=== PATIENT | female | born 1955 | race Caucasian/White ===

== ENCOUNTER → 2023-05-31 14:28 | Outpatient (REF) | payer BC, SELFPAY | LOC: HWWDC 14:28 | PROVIDERS: ATTENDING PHYSICIAN Family Medicine | DX: Z12.31 Encounter for screening mammogram for malignant neoplasm of breast (principal) | CPT/HCPCS: 77063; 77067 ==

== ENCOUNTER 2023-07-15 12:45 | Emergency (ER) | payer BC, MEDICARE, SELFPAY ==
[2023-07-15 13:05] VITALS: BP 142/82
[2023-07-15 13:37] LABS: % Eosinophils 3.1 % (0-6); % Immature Granulocytes 0.4 % (0-0.5); % Lymphocytes 31.2 % (20.5-51.1); % Monocytes 6.4 % (1.7-9.3); % Neutrophils 57.9 % (42.2-75.2); Absolute Basophils 0.1 10^3/uL (0-0.2); Absolute Eosinophils 0.2 10^3/uL (0-0.7); Absolute Lymphocytes 2.2 10^3/uL (1.2-3.4); Absolute Monocytes 0.5 10^3/uL (0.1-0.6); Absolute Neutrophils 4.1 10^3/uL (1.4-6.5); Hematocrit 36.6 % (37.0-47.0); Hemoglobin 12.2 g/dL (12.0-16.0); Mean Corp Hgb Conc. 33.3 g/dL (33.0-37.0); Mean Corpuscular Volume 101.9 fL (81.0-99.0); Nucleated Red Blood Cells % 0 %; Platelet Count 309 10^3/uL (130-400); Red Blood Cell Count 3.59 10^6/uL (4.20-5.40); Red Cell Dist. Width 13.8 % (11.5-14.5); White Blood Cell Count 7.1 10^3/uL (4.8-10.8)
[2023-07-15 13:50] LABS: ALT (SGPT) 34 U/L (0-35); AST (SGOT) 51 U/L (14-36); Albumin 4.5 g/dl (3.5-5.0); Alkaline Phosphatase 116 U/L (38-126); Blood Urea Nitrogen 19 mg/dl (7-17); Calcium 9.1 mg/dl (8.4-10.2); Carbon Dioxide 22 mmol/L (22-30); Chloride 102 mmol/L (98-107); Glucose 106 mg/dl (70-99); Potassium 3.9 mmol/L (3.5-5.1); Sodium 138 mmol/L (135-145); Total Bilirubin 0.4 mg/dl (0.2-1.3); Total Protein 6.9 g/dl (6.3-8.2); eGFR 49.61
[2023-07-15 14:01] LABS: Troponin I < 0.012 ng/ml
--- NOTE | 2023-07-15 15:08 | ED.GENMED ---
History of Present Illness
General
Chief Complaint: Headache
Source: patient and spouse
Exam Limitations: none
Time Seen by Provider: 07/15/23 15:07
Nursing documentation reviewed up to this point in time: agreed with
Travel History
Have you had any contact with someone who has COVID-19?: No
Do you have any symptoms of coronavirus? Fever > 100 degrees, chills, cough, shortness of breath, sore throat, loss of taste or smell, muscle aches, or headache?: No
History of Present Illness
History of Present Illness:
Patient is a 67-year-old female with past medical history of aneurysm with repair 18 years ago, migraine headaches, hyperlipidemia hypertension who presents to the ER for evaluation of headache. She has had intermittent headaches /migraines which
seem to be worse around change of weather since she had her aneurysm repair. For this she is treated with oxycodone as needed. She is followed by neurology outside of [facility]. Over the past week she has had increased episodes of
migraines however since 2 AM patient has had this right-sided migraine headache which is not relieved with oxycodone. She reports this is worse than her normal headaches but same type of headache. She denies any associated vision loss nausea
vomiting fever chills.
She denies any trauma. She denies any neck pain numbness tingling confusion difficulty with speech.
Past History
Past History
ED Past Medical History: Cancer (breast treated with lumpectomy, chemotherapy, radiation therapy), HTN, Hypercholesterolemia, Psychiatric (major depression), Other (pneumonia, hepatitis A), Other (Cerebral aneurysm, peripheral vascular disease) and
Other (colonic polyps); Negative Renal failure (chronic kidney disease stage III, history of acute kidney insufficiency) or Seizures (psychogenic nonepileptic seizures meaning pseudoseizures)
ED Past Surgical History: Cholecystectomy, Gynecological (hysterectomy, section), Orthopedic (legs fracture repairs, right hip replacement 2006, shoulder surgery 1977) and Other (Aneurysm with clips)
Social History
Tobacco: Former smoker
Alcohol: Chronic alcoholic
Drug: None
Personal:
Living: with family
Employment: Employed
Family History
Family History: Hypertension and Other (parent with alcoholism)
Review of Systems
Review of Systems
Allergies reviewed?: Yes
All Other Systems: ROS reviewed and negative except as documented in HPI and ROS
Constitutional: Reports no symptoms; Denies fever, fatigue or chills
EENT: Reports no symptoms
Respiratory: Reports no symptoms
Cardiac: Reports no symptoms
ABD/GI: Reports no symptoms; Denies nausea or vomiting
Musculoskeletal: Reports no symptoms; Denies neck pain
Skin: Reports no symptoms; Denies rash
Neurological: Reports headache
Hematologic/Lymphatic: Reports no symptoms
Psychiatric: Reports no symptoms
Phy Exam
General Physical Exam
General Presentation: no apparent distress
General age: appears stated age
General Skin: warm and dry
General Habitus: normal
General Mental: alert
General Hydration: appears well hydrated
Eye Exam
Eye Exam: PERRL and EOMI
Eye Exam General: PERRL: bilateral and EOM intact: bilateral
Pupil Exam: Bilateral: round and reactive
Neurological Exam
Neurological Exam: alert, oriented x3, no motor deficits and no sensory deficits
[place] Coma Scale
Eye Opening: Spontaneous
Verbal Response: Oriented
Motor Response: Obeys Commands
GCS Total Score: 15
Cerebellar
Cerebellar Function: normal finger to nose
Musculoskeletal Exam
Musculoskeletal Exam: full ROM and other (non tender over right temporal artery no rash )
Skin Exam
Skin Exam: normal color and warm/dry
Psychiatric Exam
Psychiatric Exam: normal mood/affect
Course
Orders/Labs/Results
Orders:
Orders
07/15/23 13:09
Electrocardiogram (*1) Urgent
Reason for Study: Other
Other Reason for Exam: chest tightness
07/15/23 13:10
EKG- Treatment ONCE
07/15/23 13:24
Complete Blood Count/With Diff Urgent
Comprehensive Metabolic Panel Urgent
Troponin I Urgent
07/15/23 15:19
CT Head W/o Iv Contrast Urgent
Comment:
Reason For Exam: right sided headache
07/15/23 15:20
Diphenhydramine [Benadryl] 25 mg IV NOW STA
Metoclopramide [Reglan] 10 mg IV NOW STA
07/15/23 15:21
0.9% Sodium Chloride 1000 ml [Nss] 1,000 ml IV BOLUS
Abnormal Lab Results
07/15/23
13:24
RBC 3.59 L 10^6/uL
(4.20-5.40)
Hct 36.6 L %
(37.0-47.0)
MCV 101.9 H fL
(81.0-99.0)
MCH 34.0 H pg
(27.0-31.0)
BUN 19 H mg/dl
(7-17)
Creatinine 1.2 H mg/dL
(0.6-1.0)
Glucose 106 H mg/dl
(70-99)
AST 51 H U/L
(14-36)
07/15/23 13:24
07/15/23 13:24
Vital Signs
Initial and Last Documented VS:
Initial Vital Signs
Temp Pulse Resp BP Pulse Ox
98.7 F 90 18 142/82 98
07/15/23 13:05 07/15/23 13:05 07/15/23 13:05 07/15/23 13:05 07/15/23 13:05
Last Documented Vital Signs
Temp Pulse Resp BP Pulse Ox
98.7 F 81 12 123/78 99
07/15/23 13:05 07/15/23 16:19 07/15/23 16:19 07/15/23 16:19 07/15/23 16:19
MDM/Problems Addressed
Differential Diagnosis Includes:
not limited to: migraine , intracranial hemorrhage
MDM/Problems Addressed:
Patient is a 67-year-old female with history of migraines status post aneurysm repair approximately 10 years ago. She does see Dr. Purvis of neurology and takes oxycodone as needed. Patient reports this headache was similar nature to her
previous migraines but worse. She has had increasing head of her recent weather change. Patient denies any recent fever or chills. She denies any trauma denies neck pain no rash she is nontender over the right temporal artery. CAT scan
unremarkable. Patient was given Reglan fluids Benadryl feeling much better feels well to go home. Will DC with outpatient neurology.
*Radiology
Radiology exam reviewed: radiology read reviewed
*Pulse Oximetry
Patient hypoxic: no
*Critical Care Note
Total Time (30-74mins, 75-104mins- exclusive of procedures): Not Applicable
ED Attending Note
-
Portions of this chart may have been created with voice recognition software.� Occasional wrong word or��sound alike� substitutions may have occurred due to the inherent limitations of voice recognition software.
Discharge Plan
Departure
Patient Disposition: Home (Routine Discharge)
Date of Disposition: 07/15/23
Time of Disposition: 18:20
Patient with high blood pressure during this ER visit?: Yes
Condition: Fair
Covid-19: Not Applicable
Discharge Problem:
Headache
Instructions: Headache, Adult (DC), BLOOD PRESSURE
Prescriptions:
No Action
topiramate 25 MG tablet
50 mg PO BID
simvastatin 20 MG tablet
40 mg PO HS
duloxetine 60 MG capsule,delayed release(DR/EC)
60 mg PO BID
multivitamin with folic acid [Tab-A-Sanchez] 1 TABLET tablet
1 tab PO DAILY
lamotrigine [Lamictal] 200 mg Tablet
400 mg PO HS
levothyroxine 25 MCG tablet
50 mcg PO DAILY
ferrous sulfate [Feosol] 325 mg (65 mg iron) Tablet
325 mg PO DAILY
potassium chloride
1 tab PO DAILY
mupirocin 2 % ointment
1 applic intranasal BID Qty: 1 0RF
Patient Comments:
Patient applied 04/15/23 @ 4;30. Patient start this medication 04/12/23 in the evening.
aspirin 325 mg Tablet
325 mg PO DAILY Qty: 30 0RF
Rx Instructions:
Take daily x4 weeks for blood clot prevention; then resume Aspirin 81 mg daily.
docusate sodium 100 mg Capsule
100 mg PO BID Qty: 30 0RF
lidocaine 4 % Adhesive Patch,Medicated
2 - 3 patch topical DAILY Qty: 30 0RF
Rx Instructions:
Over the counter. 12 hours on, 12 hours off.
Apply to sides of L knee/thigh
famotidine 20 mg Tablet
20 mg PO HS Qty: 30 0RF
Rx Instructions:
Take nightly while on post-operative pain meds to prevent GI upset.
oxycodone 5 mg Tablet
5 - 10 mg PO Q4H PRN (Reason: moderate-severe pain) Qty: 40 0RF
Rx Instructions:
1 tab for moderate pain, 2 if severe.
Dx total joint
sennosides [Senna Lax] 8.6 mg Tablet
17.2 mg PO BID Qty: 30 0RF
acetaminophen [Tylenol Extra Strength] 500 mg tablet
1,000 mg PO Q6H Qty: 60 0RF
Rx Instructions:
DO NOT exceed >4000 mg daily.
ondansetron HCl 4 mg tablet
4 mg PO Q6H PRN (Reason: nausea and vomiting) Qty: 30 0RF
diazepam [Valium] 2 mg tablet
2 mg PO BID PRN (Reason: muscle spasm/anxiety) Qty: 10 0RF
Rx Instructions:
Caution with Oxycodone - can cause drowsiness.
Take only as directed.
prednisone 10 mg tablet
40 mg PO TAPER Qty: 20 0RF
Rx Instructions:
4 TABS X 2 DAYS, 3 TABS X 2 DAYS, 2 TABS X 2 DAYS, 1 TAB X 2 DAYS, THEN STOP
clonidine HCl 0.1 MG tablet
0.1 mg PO BID Qty: 60 0RF
Rx Instructions:
HOLD IF systolic blood pressure <130 while on Oxycodone.
candesartan 16 MG tablet
16 mg PO DAILY Qty: 0 0RF
Rx Instructions:
HOLD IF systolic blood pressure <130 while on Oxycodone.
Referrals:
Joselin Proctor, DO [Family Provider] -
Activity Restrictions/Additional Instructions:
You may take your medications as previously prescribed for headaches.
Follow-up with your neurologist in the next several days and return if any worsening of symptoms
Interventions
Interventions:
*Risk Screen - Suicide Last Done: 07/15/23 13:05
*General Assessment Last Done: 07/15/23 13:05
*Neglect/Abuse Screening Last Done: 07/15/23 13:05
ED- Neurological Assessment Last Done: 07/15/23 16:19
Discharge Date and Time
Print Language: MACEDONIAN
[2023-07-15] MEDS: NSS 1000 IV (15:26)
[2023-07-15] MEDS: BENADRYL 25 MG IV (15:27)
[2023-07-15] MEDS: REGLAN 10 MG IV (15:27)
--- NOTE | 2023-07-15 15:30 | EDRN ---
Pt screaming and yelling in hallway, unable to be consoled by . Pt yelling 'just cut my head off' over and over again. attempting to redirect pt to stop yelling since other patients were starting to observe this behavior.
informed pt 'not many people live without a head' in an attempt to joke with pt and maybe bring her around from repetitive yelling, pt continued to ask for staff to cut her head off... this RN did follow up suicide assessment and RADAR screening, pt
states 'I don't really want you to cut my head off you idiots!' Airway patent, pt in no acute distress. Will continue to monitor.
[2023-07-15 16:19] VITALS: BP 123/78
--- NOTE | 2023-07-15 16:42 | EDRN ---
Pt sleeping in stretcher, at bedside.
== END 2023-07-15 18:45 | disposition home or self-care (01) ==
LOC: EMR 12:45
PROVIDERS: EMERGENCY PHYSICIAN Student in an Organized Health Care Education/Training Program; FAMILY PHYSICIAN Family Medicine
DX: R51.9 Headache, unspecified (principal); I10 Essential (primary) hypertension; Z87.891 Personal history of nicotine dependence
CPT/HCPCS: 99285; 96374; 96375; 96361; 70450; 80053; 84484; 85025; 93005

== ENCOUNTER 2023-07-17 06:21 | Emergency (ER) | payer BC, MEDICARE, SELFPAY ==
[2023-07-17] VITALS (10 sets, daily range): BP systolic 123–172; BP diastolic 68–96
--- NOTE | 2023-07-17 07:16 | ED.GENMED ---
History of Present Illness
General
Chief Complaint: Headache
Source: patient and spouse
Time Seen by Provider: 07/17/23 07:05
Travel History
Have you had any contact with someone who has COVID-19?: No
Do you have any symptoms of coronavirus? Fever > 100 degrees, chills, cough, shortness of breath, sore throat, loss of taste or smell, muscle aches, or headache?: No
History of Present Illness
History of Present Illness:
This patient is a 67-year-old female presents emergency department complaints of a 'migraine'. Patient has a longstanding history of migraines ever since she had a aneurysm clipPED in 2005. She notes this is usually associated with changes in the
weather such as rain which we are experiencing at this time. Her neurologist prescribed her oxycodone to take as needed for the symptoms which usually helps her. A typical migraine for her start near the scar area of the right frontal area and
radiates across her forehead and to the top of her head. She notes that sometimes her ears will be ringing, and she notes photophobia as well. She is having the same type of headache now, but is concerned because it is not relieved with oxycodone
as it typically is. It is gradual in onset and not worst of life. She was seen in the emergency department on with similar presentation and felt better with medications here. She was not fully pain-free upon discharge and states that
since then she has been having 'waves' of recurrent pain lasting 20 to 40 minutes at a time and then reducing but not fully resolving. She denies associated visual changes/diplopia, imbalance dizziness or vertigo, nausea, vomiting, chest pain,
shortness of breath, abdominal pain, numbness, focal weakness, clumsiness, or other complaints. Patient denies recent trauma.
Past History
Past History
ED Past Medical History: Cancer (breast treated with lumpectomy, chemotherapy, radiation therapy), HTN, Hypercholesterolemia, Seizures (psychogenic nonepileptic seizures meaning pseudoseizures), Psychiatric (major depression), Other (pneumonia,
hepatitis A), Other (Cerebral aneurysm, peripheral vascular disease) and Other (colonic polyps)
ED Past Surgical History: Cholecystectomy, Gynecological (hysterectomy, section), Orthopedic (legs fracture repairs, right hip replacement 2006, shoulder surgery 1977) and Other (Aneurysm with clips)
Social History
Tobacco: Former smoker
Alcohol: Chronic alcoholic
Drug: None
Personal:
Living: with family
Employment: Employed
Family History
Family History: Hypertension and Other (parent with alcoholism)
Phy Exam
Physical Exam
Physical Exam:
GENERAL: Alert , in no apparent distress
EYE: pupils equal and reactive, EOMI, no nystagmus, mild objective photophobia noted
NECK: Supple, no significant adenopathy.
ENT: o/p clr, mmm.
CARDIAC: Regular rate and rhythm .
LUNGS: Clear breath sounds bilaterally, no acute respiratory distress, no wheezes/rales/rhonchi
ABDOMEN: Soft, without focal tenderness, no r/g, no cvat
NEUROLOGICAL: Alert and oriented, no focal neuro deficits, speech clear, cranial nerves II through XII intact, was all extremities equally
SKIN: Warm and dry, skin intact.
MUSCULOSKELETAL: No edema, well perfused.
PSYCH: Normal and appropriate interaction.
Course
Orders/Labs/Results
Orders:
Orders
07/17/23 07:15
Diphenhydramine [Benadryl] 25 mg IV NOW STA
Metoclopramide [Reglan] 10 mg IV NOW STA
07/17/23 09:41
Dexamethasone Sod Phosphate [Decadron] 20 mg .ROUTE .STK-MED ONE
07/17/23 09:42
Dexamethasone Sod Phosphate [Decadron] 10 mg IV NOW STA
Vital Signs
Initial and Last Documented VS:
Initial Vital Signs
Temp Pulse Resp BP Pulse Ox
98.5 F 105 24 147/87 97
07/17/23 06:26 07/17/23 06:26 07/17/23 06:26 07/17/23 06:26 07/17/23 06:26
Last Documented Vital Signs
Temp Pulse Resp BP Pulse Ox
98.2 F 95 16 154/88 96
07/17/23 14:15 07/17/23 14:15 07/17/23 14:15 07/17/23 14:15 07/17/23 14:15
*Critical Care Note
Total Time (30-74mins, 75-104mins- exclusive of procedures): Not Applicable
Update Note
Update Note:
Patient presents to the Emergency Department with ___headache
Number and Complexity of Problems Addressed at the Encounter
� Chronic conditions affecting care:
� Acute Exacerbation and/or Progression of Chronic Illness:
� Differential Diagnosis includes: But not limited to tension headache, recurrent migraine, cluster headache, bleed, etc.
Amount and/or Complexity of Data to be Reviewed and Analyzed
� I performed an independent evaluation of and my interpretation is:
EKG:
CT:
Xrays:
Laboratory Studies:
Other:
� Review of other/old records reveals:
� Clinical information was obtained by an independent historian:
� Prescriptions/Medications Considered but not given:
� Further testing considered but not performed:
Risk of Complications and/or Morbidity or Mortality of Patient Management
� Social determinants of health affecting care:
� Discussion with other providers (PCP, Hospitalists, Consultants, etc):
� Escalation of care including admission/observation vs risk of discharge considered: 1:46 PM multiple reassessments here, patient has slept for much of it, she then awoke complaining of another 'event' of pain, patient dosed
with steroids, is pain-free, stable, nontoxic, without any findings or complaints. Highly doubt that this is related to something more ominous given clinical course here, unremarkable CT just a few days ago, etc. etc. Patient and eager to
go home. They are aware of importance of follow-up and reasons to return to the ER.
ED Attending Note
-
Portions of this chart may have been created with voice recognition software.� Occasional wrong word or��sound alike� substitutions may have occurred due to the inherent limitations of voice recognition software.
Discharge Plan
Departure
Patient Disposition: Home (Routine Discharge)
Date of Disposition: 07/17/23
Time of Disposition: 13:44
Patient with high blood pressure during this ER visit?: Yes
Condition: Good
Discharge Problem:
Headache
Instructions: Headache, Adult (DC), BLOOD PRESSURE
Prescriptions:
New
prednisone 20 mg tablet
40 mg PO DAILY 3 Days Qty: 6 0RF
No Action
topiramate 25 MG tablet
50 mg PO BID
simvastatin 20 MG tablet
40 mg PO HS
duloxetine 60 MG capsule,delayed release(DR/EC)
60 mg PO BID
multivitamin with folic acid [Tab-A-Sanchez] 1 TABLET tablet
1 tab PO DAILY
lamotrigine [Lamictal] 200 mg Tablet
400 mg PO HS
levothyroxine 25 MCG tablet
50 mcg PO DAILY
ferrous sulfate [Feosol] 325 mg (65 mg iron) Tablet
325 mg PO DAILY
potassium chloride
1 tab PO DAILY
famotidine 20 mg Tablet
20 mg PO HS Qty: 30 0RF
Rx Instructions:
Take nightly while on post-operative pain meds to prevent GI upset.
oxycodone 5 mg Tablet
5 - 10 mg PO Q4H PRN (Reason: moderate-severe pain) Qty: 40 0RF
Rx Instructions:
1 tab for moderate pain, 2 if severe.
Dx total joint
clonidine HCl 0.1 MG tablet
0.1 mg PO BID Qty: 60 0RF
Rx Instructions:
HOLD IF systolic blood pressure <130 while on Oxycodone.
candesartan 16 MG tablet
16 mg PO DAILY Qty: 0 0RF
Rx Instructions:
HOLD IF systolic blood pressure <130 while on Oxycodone.
aspirin [Aspir-Low] 81 mg Tablet,Delayed Release (Dr/Ec)
81 mg PO DAILY
Referrals:
Joselin Proctor DO [Family Provider] -
Activity Restrictions/Additional Instructions:
PLEASE CONTACT YOUR NEUROLOGIST ON WEDNESDAY FOR CLOSE FOLLOW-UP. IF YOU DEVELOP INCREASING, NEW, PERSISTENT PAIN, FEVER, VOMITING, NUMBNESS, WEAKNESS, DIZZINESS, CHANGE IN VISION, CHANGE IN SPEECH, OR OTHER WORRISOME SIGNS, PLEASE RETURN TO THE ER
IMMEDIATELY.
Interventions
Interventions:
*Risk Screen - Suicide Last Done: 07/17/23 06:26
*General Assessment Last Done: 07/17/23 06:26
*Neglect/Abuse Screening Last Done: 07/17/23 06:26
ED- Fall Risk Assessment Last Done: 07/17/23 06:26
*ED COVID-19 Vaccine History Last Done: 07/17/23 06:26
*Nursing Disposition Last Done: 07/17/23 14:15
ED- Neurological Assessment Last Done: 07/17/23 06:45
Discharge Date and Time
Discharge Date/Time: 07/17/23 14:15
Print Language: [id number]
[2023-07-17] MEDS: REGLAN 10 MG IV (07:24)
[2023-07-17] MEDS: BENADRYL 25 MG IV (07:24)
[2023-07-17] MEDS: DECADRON 10 MG IV (09:43)
== END 2023-07-17 14:15 | disposition home or self-care (01) ==
LOC: EMR 06:21
PROVIDERS: EMERGENCY PHYSICIAN Emergency Medicine; FAMILY PHYSICIAN Family Medicine
DX: R51.9 Headache, unspecified (principal); I10 Essential (primary) hypertension; E78.00 Pure hypercholesterolemia, unspecified; R56.9 Unspecified convulsions; I73.9 Peripheral vascular disease, unspecified; F32.9 Major depressive disorder, single episode, unspecified; F10.20 Alcohol dependence, uncomplicated; Z90.49 Acquired absence of other specified parts of digestive tract; Z96.641 Presence of right artificial hip joint; Z87.891 Personal history of nicotine dependence; Z88.5 Allergy status to narcotic agent; Z88.0 Allergy status to penicillin; Z88.8 Allergy status to other drugs, medicaments and biological substances; Z88.3 Allergy status to other anti-infective agents; Z91.030 Bee allergy status
CPT/HCPCS: 99284; 96374; 96375 ×2

== ENCOUNTER → 2023-08-03 14:04 | Outpatient (REF) | payer BC, MEDICARE, SELFPAY | LOC: MRI 14:04 | PROVIDERS: ATTENDING PHYSICIAN Neurological Surgery; FAMILY PHYSICIAN Family Medicine | DX: I67.1 Cerebral aneurysm, nonruptured (principal); G44.53 Primary thunderclap headache; G40.909 Epilepsy, unspecified, not intractable, without status epilepticus | CPT/HCPCS: 70553; A9575 ==

== ENCOUNTER → 2023-10-15 12:36 | Outpatient (REF) | payer BC, MEDICARE, SELFPAY | LOC: HWRAD 12:36 | PROVIDERS: ATTENDING PHYSICIAN Family Medicine | DX: R68.89 Other general symptoms and signs (principal) | CPT/HCPCS: 74176 ==

== ENCOUNTER 2024-04-20 21:47 | Inpatient (IN) | payer BC, MEDICARE, SELFPAY ==
[2024-04-20 18:21] VITALS: BP 155/89
--- NOTE | 2024-04-20 18:22 | ED.CVA ---
History of Present Illness
General
Chief Complaint: CVA/TIA Symptoms
Time Seen by Provider: 04/20/24 18:21
Onset of Stroke Symptoms
Onset of symptoms known: Yes
Date of onset of symptoms: 04/20/24
History of Present Illness
History of Present Illness:
TIME OF INITIAL ENCOUNTER: 6:20 PM
HPI: I spoke to EMS for history as the patient is an extremely poor historian currently. EMS states that the patient started taking nap at 4:30 PM and was at her baseline usual self at that time. She woke up around 5:30 PM with severe headache.
Per EMS they noted severe language deficit with repetitive speech and garbled speech. They noted no extremity weakness. There was some report of alcohol use earlier as well.
EXAM:
GENERAL: The patient is overall ill in appearance and appears photophobic
HEENT: Moist oral mucosa
CARDIOVASCULAR: No murmurs, normal heart rate, regular rhythm, No chest wall tenderness
PULMONARY: No respiratory distress, breath sounds are clear and equal
ABDOMEN: Soft with no peritoneal signs, no tenderness
NEUROLOGIC: Fair strength all extremities equally, due to patient compliance, coordination is not testable, language and speech is abnormal with garbled speech
PSYCHIATRIC: Impaired mental status with limited insight and judgment
EXTREMITIES: Nontender, no edema, moves all extremities equally
SKIN: No rash, no lesions
NUMBER AND COMPLEXITY OF PROBLEMS ADDRESSED AT THE ENCOUNTER
� Chronic conditions affecting care: Reviewed old records indicate the patient was diagnosed with a brain aneurysm in 2004, is a smoker, high blood pressure, hyperlipidemia, breast cancer
� Acute Exacerbation and/or Progression of Chronic Illness: This is an acute
� Differential Diagnosis includes: Hemorrhagic stroke, ischemic stroke, hypoglycemia, alcohol intoxication
AMOUNT AND/OR COMPLEXITY OF DATA TO BE REVIEWED AND ANALYZED
� I performed an independent evaluation of and my interpretation is:
EKG: Sinus 98, nonspecific ST abnormality
CT: Noncontrast brain CT negative, CTA head and neck shows 75% stenosis right ICA patient
X-rays:
Laboratory Studies: CBC is unremarkable but MCV is 101 alcohol is 196, LFTs abnormal, bicarb 20
Other:
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
� Clinical information was obtained by an independent historian: I spoke to the at bedside
� Prescriptions/Medications Considered but not given:
� Further testing considered but not performed:
RISK OF COMPLICATIONS AND/OR MORBIDITY OR MORTALITY OF PATIENT MANAGEMENT
� Social determinants of health affecting care: Lives at home
� Discussion with other providers: Discussed case with Dr. Richardson below
� Escalation of care including admission/observation vs risk of discharge considered:
ANY OTHER UPDATES:
6:40 PM: I spoke to the at bedside after patient came back from CT. The patient has been having myalgias and arthralgias since this past August. She was seen by storage center manager who felt that her symptoms were not rheumatologic in nature and
referred her back to her neurologist. She is supposed to have an EMG as an outpatient with her neurologist as well. Her speech is intermittently improving. She was seen by Dr. Ferrer in the Emergency Department who suspect this is not neurologic
in nature but recommended the patient stay in the hospital for further evaluation and MRI tomorrow as she does have risk factors. Alcohol is elevated however I do not suspect that this is explaining all of her symptoms. feels strongly that
the patient should not be discharged. Although patient currently does not want to stay, I am concerned about her mental status and ability to make a decision about leaving appropriately at this time.
Past History
Past History
ED Past Medical History: Cancer (breast treated with lumpectomy, chemotherapy, radiation therapy), HTN, Hypercholesterolemia, Seizures (psychogenic nonepileptic seizures meaning pseudoseizures), Psychiatric (major depression), Other (pneumonia,
hepatitis A), Other (Cerebral aneurysm, peripheral vascular disease) and Other (colonic polyps)
ED Past Surgical History: Cholecystectomy, Gynecological (hysterectomy, section), Orthopedic (legs fracture repairs, right hip replacement 2006, shoulder surgery 1977) and Other (Aneurysm with clips)
Social History
Tobacco: Former smoker
Alcohol: Chronic alcoholic
Drug: None
Personal:
Living: with family
Employment: Employed
Family History
Family History: Hypertension and Other (parent with alcoholism)
Phy Exam
Physical Exam
Physical Exam:
See HPI
Course
Orders/Labs/Results
Orders:
Orders
04/20/24 18:21
CT HEAD STROKE ALERT W/o Cont Urgent
Comment:
Reason For Exam: severe DUMONT garbled speech acute
CT HEAD/NECK ANG STROKE ALERT Stat
Comment:
Reason For Exam: severe DUMONT garbled speech acute
04/20/24 18:25
Bedside Glucose- Treatment ONCE
04/20/24 18:26
Electrocardiogram (*1) Urgent
Reason for Study: TIA/Stroke
EKG- Treatment ONCE
04/20/24 18:31
Acetaminophen Urgent
Alcohol Urgent
Complete Blood Count/With Diff Urgent
Comprehensive Metabolic Panel Urgent
PTT Urgent
Prothrombin Time Urgent
Salicylate Urgent
TSH Reflex To Free T4 Urgent
Vitamin B12 Urgent
Comment: ADD ON
04/20/24 19:36
Add On- LAB Urgent
Tests Added?: salicylate, acetaminophen level, urine drug screen
04/20/24 19:38
Add On- LAB Urgent
Tests Added?: vitamin B12 level
04/20/24 19:44
Add On- LAB Urgent
Tests Added?: TSh with free t4 reflex
Abnormal Lab Results
04/20/24 04/20/24
18:31 18:44
RBC 3.98 L 10^6/uL
(4.20-5.40)
MCV 101.3 H fL
(81.0-99.0)
MCH 33.4 H pg
(27.0-31.0)
Abs Immat Gran (auto) 0.1 H 10^3/uL
(0-0.05)
Absolute Neuts (auto) 6.8 H 10^3/uL
(1.4-6.5)
Immature Gran % 1.5 H %
(0-0.5)
Neutrophils % 81.7 H %
(42.2-75.2)
Lymphocytes % 14.5 L %
(20.5-51.1)
Monocytes % 1.6 L %
(1.7-9.3)
Carbon Dioxide 20 L mmol/L
(22-30)
BUN 20 H mg/dl
(7-17)
Glucose 149 H mg/dl
(70-99)
AST 128 H U/L
(14-36)
ALT 121 H U/L
(0-35)
Alkaline Phosphatase 186 H U/L
(38-126)
POC Glucose 157 H mg/dl
(70-99)
04/20/24 18:31
04/20/24 18:31
Vital Signs
Initial and Last Documented VS:
Initial Vital Signs
Pulse Resp BP Pulse Ox
99 18 155/89 95
04/20/24 18:21 04/20/24 18:21 04/20/24 18:21 04/20/24 18:21
Last Documented Vital Signs
Pulse Resp BP Pulse Ox
99 18 155/89 95
04/20/24 18:21 04/20/24 18:21 04/20/24 18:21 04/20/24 18:21
*Critical Care Note
Total Time (30-74mins, 75-104mins- exclusive of procedures): Not Applicable
ED Attending Note
-
Portions of this chart may have been created with voice recognition software.� Occasional wrong word or��sound alike� substitutions may have occurred due to the inherent limitations of voice recognition software.
Discharge Plan
Departure
Patient Disposition: Admit
Date of Disposition: 04/20/24
Time of Disposition: 19:08
Presentation/result/management discussed w/ accepting MD/DO: Hospitalist
Discharge Problem:
Acute alteration in mental status
Prescriptions:
No Action
topiramate 25 MG tablet
50 mg PO BID
simvastatin 20 MG tablet
40 mg PO HS
duloxetine 60 MG capsule,delayed release(DR/EC)
60 mg PO BID
multivitamin with folic acid [Tab-A-Sanchez] 1 TABLET tablet
1 tab PO DAILY
lamotrigine [Lamictal] 200 mg Tablet
400 mg PO HS
levothyroxine 25 MCG tablet
50 mcg PO DAILY
ferrous sulfate [Feosol] 325 mg (65 mg iron) Tablet
325 mg PO DAILY
potassium chloride
1 tab PO DAILY
famotidine 20 mg Tablet
20 mg PO HS Qty: 30 0RF
Rx Instructions:
Take nightly while on post-operative pain meds to prevent GI upset.
oxycodone 5 mg Tablet
5 - 10 mg PO Q4H PRN (Reason: moderate-severe pain) Qty: 40 0RF
Rx Instructions:
1 tab for moderate pain, 2 if severe.
Dx total joint
clonidine HCl 0.1 MG tablet
0.1 mg PO BID Qty: 60 0RF
Rx Instructions:
HOLD IF systolic blood pressure <130 while on Oxycodone.
candesartan 16 MG tablet
16 mg PO DAILY Qty: 0 0RF
Rx Instructions:
HOLD IF systolic blood pressure <130 while on Oxycodone.
aspirin [Aspir-Low] 81 mg Tablet,Delayed Release (Dr/Ec)
81 mg PO DAILY
prednisone 20 mg tablet
40 mg PO DAILY 3 Days Qty: 6 0RF
Referrals:
Joselin Proctor, DO [Family Provider] -
Interventions
Interventions:
*Risk Screen - Suicide Last Done: 04/20/24 18:47
*General Assessment Last Done: 04/20/24 18:47
*Neglect/Abuse Screening Last Done: 04/20/24 18:47
ED- Pulmonary Assessment Last Done: 04/20/24 18:45
ED- Neurological Assessment Last Done: 04/20/24 19:25
ED- Cardiac Assessment Last Done: 04/20/24 18:45
ED Swallowing Screen Last Done: 04/20/24 19:32
Discharge Date and Time
Print Language: GREEK
[2024-04-20 18:38] LABS: % Basophils 0.5 % (0-2); % Eosinophils 0.2 % (0-6); % Immature Granulocytes 1.5 % (0-0.5); % Lymphocytes 14.5 % (20.5-51.1); % Monocytes 1.6 % (1.7-9.3); % Neutrophils 81.7 % (42.2-75.2); Absolute Immature Granulocytes 0.1 10^3/uL (0-0.05); Absolute Lymphocytes 1.2 10^3/uL (1.2-3.4); Absolute Monocytes 0.1 10^3/uL (0.1-0.6); Absolute Neutrophils 6.8 10^3/uL (1.4-6.5); Hematocrit 40.3 % (37.0-47.0); Hemoglobin 13.3 g/dL (12.0-16.0); Mean Corpuscular Hgb 33.4 pg (27.0-31.0); Mean Corpuscular Volume 101.3 fL (81.0-99.0); Mean Platelet Volume 9.3 fL (7.4-10.4); Nucleated Red Blood Cells % 0 %; Platelet Count 255 10^3/uL (130-400); Red Blood Cell Count 3.98 10^6/uL (4.20-5.40); Red Cell Dist. Width 12.8 % (11.5-14.5); White Blood Cell Count 8.3 10^3/uL (4.8-10.8)
--- NOTE | 2024-04-20 18:41 | CON.NEURO ---
Consultation
Order
Date of Consultation: 04/20/24
Requesting Provider: Chago Padilla,
Reason for Consult: stroke alert
Stroke alert called in: 18:14
Neurology Consultation Note.
HPI: This is a 68-year-old woman who presented to [facility] on 04/20/2024 with change in speech. According to patient's spouse Ms. Porras woke up around 5:30 today, screaming and clutching her head. Her speech was noted to be 'really
off.'
No reports of visual, motor or or new sensory deficits. Last time seen in usual state of health�around 4:30 PM patient does have chronic arthralgias. The patient is unable to provide the history.
The patient recently completed a course of prednisone (20 mg for 3 days, followed by 15 mg) with no reported improvement of her chronic arthralgias/myalgias.
ER VS: 155/89, 99, afebrile, 95 on room air
EKG: NSR, QTc Int : 474 ms
PDMP:Oxycodone-Acetaminophen 5-325 60 tabs filled in on 03/09/2024, 04/11/2024
Labs: Glucose�149, AST�128, ALT�121, normal WBCs, MCV�101.3, EtOH�196 mg/dl
CT head wo contrast-no acute abnormalities
CTA head/neck�75% of the right ICA.
Brain MRI wo nilda(07/03/23)-scattered small foci of chronic microhemorrhage .
PMH: breast CA, history of headaches, HTN, CKD, seizure DO, h/o Acom aneurysm, hypothyroidism, hiatal hernia, obesity, NILDA, chronic pain
PSH: Right frontal craniotomy/ACom coiling (2005), cholecystectomy, Left TKR, , R lumpectomy, hysterectomy, bladder repair, right total hip replacement,
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
All: Penicillin, metoprolol, amlodipine, Celexa, codeine, morphine, ampicillin, HCTZ, CHANTIX
ROS: Constitutional: Negative. Negative for chills, fever and unexpected weight change.
Musculoskeletal: Positive for arthralgias
Neurological: Positive for headache
General: In moderate distress due to headache, photophobic
Cardio: Regular rate and rhythm. Extremities are without cyanosis or edema.
Neuro:
Mental Status: Alert, oriented to self, place. Impaired attention. Follows simple requests consistently. Labile mood. Able to read. Anxious.
Cranial Nerves: Pupils are equally round and reactive to light. EOMs full. Blinks to threat bilaterally no ptosis. No nystagmus. V1-V3 intact to light touch and pinprick bilaterally, symmetric. Face symmetric. Normal hearing AU. The palate
elevated well. SCMs and traps 5/5. Tongue midline. Mild dysarthria.
Motor: No pronator drift. Lower extremities�antigravity symmetrically.
Sensory: Limited exam due to poor attention, generalized allodynia
Coordination: No dysmetria
Gait: deferred
Assessment and Plan:
I. Dysarthria. Likely etiology�toxic. Not a candidate for IV TNK due to low NIH stroke scale
II. Encephalopathy (toxic, vascular)
III. Chronic cerebral microhemorrhages
IV. History of ACOM aneurysm status post remote clipping
V. Mod right ICA stenosis
-Continue Telemetry monitoring.
-Aspiration precautions.
-Start ASA 81 mg QD indefinitely.
-No benzos
-IV Toradol 30 mg, Reglan 10 mg, Benadryl 25 mg Q8h PRN for moderate to severe headache.
-Please check ESR, CRP, magnesium, viral panel
-antipsychotics as needed for agitation
-Future recommendations will be based upon reevaluation
-DVT prophylaxis
I personally reviewed all radiology and labs along with past medical records pertinent to current medical problems. Total time spent in patient care is 60 minutes.
Thank you for allowing us to participate in the care of this patient. We will continue to follow. Please do not hesitate to contact us with any questions or concerns.
Subjective/Objective
Subjective Data
Date of Service: April 20, 2024
Objective Data
Vital Signs
Pulse Resp BP Pulse Ox
99 18 155/89 95
04/20/24 18:21 04/20/24 18:21 04/20/24 18:21 04/20/24 18:21
Lab Results
04/20/24 18:31
Patient Allergies
Cephalosporins Allergy (Verified 07/17/23 06:26)
Rash
codeine [Codeine] Allergy (Verified 07/17/23 06:26)
'constricts breathing'
escitalopram Allergy (Verified 07/17/23 06:26)
Rash
escitalopram oxalate [From Lexapro] Allergy (Verified 07/17/23 06:26)
Potassium & sodium drops
hydrochlorothiazide Allergy (Verified 07/17/23 06:26)
fingers swelled
morphine Allergy (Verified 07/17/23 06:26)
'jump out of my skin' feeling
Penicillins Allergy (Verified 07/17/23 06:26)
rash & constricts breathing
varenicline tartrate [From Chantix] Allergy (Verified 07/17/23 06:26)
nausea;bad dreams
venom-honey bee Allergy (Verified 07/17/23 06:26)
BEE STINGS-BREATHING PROBLEMS
bee stings Allergy (Uncoded 07/17/23 06:26)
breathing problems
Medications
-
Home Medications
�Medication �Instructions �Recorded
duloxetine 60 mg capsule,delayed 60 mg PO BID 10/05/17
release
multivitamin with folic acid 400 1 tab PO DAILY 10/05/17
mcg tablet (Tab-A-Sanchez)
simvastatin 20 mg tablet 40 mg PO HS 10/05/17
topiramate 25 mg tablet 50 mg PO BID 10/05/17
ferrous sulfate 325 mg (65 mg 325 mg PO DAILY 03/23/23
iron) tablet (Feosol)
lamotrigine 200 mg tablet 400 mg PO HS 03/23/23
(Lamictal)
levothyroxine 25 mcg tablet 50 mcg PO DAILY 03/23/23
potassium chloride 1 tab PO DAILY 03/23/23
candesartan 16 mg tablet 16 mg PO DAILY #0 tabs 04/16/23
clonidine HCl 0.1 mg tablet 0.1 mg PO BID #60 tabs 04/16/23
famotidine 20 mg tablet 20 mg PO HS #30 tabs 04/16/23
oxycodone 5 mg tablet 5 - 10 mg (1 - 2 x 5 mg) PO Q4H 04/16/23
PRN moderate-severe pain #40 tabs
aspirin 81 mg tablet,delayed 81 mg PO DAILY 07/17/23
release
prednisone 20 mg tablet 40 mg (2 x 20 mg) PO DAILY 3 days 07/17/23
#6 tabs
Vital Signs and Labs
-
Vital Signs and Labs:
Vital Signs
Pulse Resp BP Pulse Ox
99 18 155/89 95
04/20/24 18:21 04/20/24 18:21 04/20/24 18:21 04/20/24 18:21
Lab Results
04/20/24 18:31
04/20/24 18:31
PT 12.3 Sec (11.4-14.6) 04/20/24 18:31
INR 0.87 04/20/24 18:31
APTT 24.3 Sec (23.4-35.0) 04/20/24 18:31
Sodium 137 mmol/L (135-145) 04/20/24 18:31
Potassium 4.8 mmol/L (3.5-5.1) 04/20/24 18:31
BUN 20 mg/dl (7-17) H 04/20/24 18:31
Glucose 149 mg/dl (70-99) H 04/20/24 18:31
Calcium 8.7 mg/dl (8.4-10.2) 04/20/24 18:31
Home Medications
-
Home Medications
duloxetine 60 mg capsule,delayed release 60 mg PO BID 10/05/17
multivitamin with folic acid 400 mcg tablet (Tab-A-Sanchez) 1 tab PO DAILY 10/05/17
simvastatin 20 mg tablet 40 mg PO HS 10/05/17
topiramate 25 mg tablet 50 mg PO BID 10/05/17
ferrous sulfate 325 mg (65 mg iron) tablet (Feosol) 325 mg PO DAILY 03/23/23
lamotrigine 200 mg tablet (Lamictal) 400 mg PO HS 03/23/23
levothyroxine 25 mcg tablet 50 mcg PO DAILY 03/23/23
potassium chloride 1 tab PO DAILY 03/23/23
candesartan 16 mg tablet 16 mg PO DAILY #0 tabs 04/16/23
clonidine HCl 0.1 mg tablet 0.1 mg PO BID #60 tabs 04/16/23
famotidine 20 mg tablet 20 mg PO HS #30 tabs 04/16/23
oxycodone 5 mg tablet 5 - 10 mg (1 - 2 x 5 mg) PO Q4H PRN moderate-severe pain #40 tabs 04/16/23
aspirin 81 mg tablet,delayed release 81 mg PO DAILY 07/17/23
prednisone 20 mg tablet 40 mg (2 x 20 mg) PO DAILY 3 days #6 tabs 07/17/23
[2024-04-20 18:50] LABS: INR 0.87; PT 12.3 Sec (11.4-14.6)
[2024-04-20 18:50] LABS: Glucose - Point of Care 157 mg/dl (70-99)
[2024-04-20 18:51] LABS: ALT (SGPT) 121 U/L (0-35); APTT 24.3 Sec (23.4-35.0); AST (SGOT) 128 U/L (14-36); Albumin 4.6 g/dl (3.5-5.0); Alcohol 196 mg/dl; Alkaline Phosphatase 186 U/L (38-126); Blood Urea Nitrogen 20 mg/dl (7-17); Calcium 8.7 mg/dl (8.4-10.2); Carbon Dioxide 20 mmol/L (22-30); Chloride 100 mmol/L (98-107); Glucose 149 mg/dl (70-99); Potassium 4.8 mmol/L (3.5-5.1); Sodium 137 mmol/L (135-145); Total Bilirubin 0.3 mg/dl (0.2-1.3); Total Protein 6.9 g/dl (6.3-8.2); eGFR > 60.00
[2024-04-20 19:00] VITALS: BP 144/73
--- NOTE | 2024-04-20 19:41 | W.PN.UPDATE ---
Update Note
Progress Note Update
Patient seen in conjunction with [facility]. I concur with the findings on history and physical as well as the assessment and plan.
This is a 68-year-old female with complex past medical history including a prior intracranial hemorrhage,/brain aneurysm status post clip craniectomy, history of breast cancer, hypertension, seizure disorder (psychogenic nonepileptic versus
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
Stroke alert by EMS from home due to severe headache and garbled speech and aphasia.
In the emergency department he was hypertensive with a blood pressure of 155/90 pulse of 99 satting 95% on room air. ECG showed sinus rhythm at a rate of [address] or T wave changes. CBC was unremarkable. Electrolytes BUN/creatinine
within normal range. Mild elevations in AST ALT and alk phos. Elevated alcohol level. CT head shows no acute findings. CT angio shows moderate right ICA stenosis at 75%. Patient seen in the ED by neurology.
Assessment and plan
CVA/TIA - Concern for TIA, possible toxic . Not a candidate for TNK.
- obs Telemetry monitoring.
- aspirin 81, statin
- inflammatory panel
- IV Toradol 30 mg, Reglan 10 mg, Benadryl 25 mg Q8h PRN for moderate to severe headache.
- mri in am
- vascular consult for moderate carotid stenosis with 75% obstruction.
- appreciate neuro input
ETOH - Self medicating. Depression Risk of withdrawal is moderate
- holding benzos for now per neuro
- IV thiamine/folate
-
Transaminitis - subacute likely due to etoh use
- trend for now
Seizure d/o
- continue aed
DVT PPX - lovenox sq
Code status - full code
--- NOTE | 2024-04-20 19:44 | HPS.HSE ---
Family Physician
-
Family Physician: Joselin Proctor
Chief Complaint
-
Headache, slurred/garbled speech reported, chronic ongoing myalgias/arthralgias, alcohol abuse, depression
History of Present Illness
68-year-old female from home who reportedly was taking a nap at 4:30 PM per EMS she apparently woke up at 5:30 PM with a severe headache EMS noted severe language deficit with repetitive speech and garbled speech however no extremity weakness.
Apparently according to neurology's note who spoke with the patient's at 6:40 PM she has been having myalgias and arthralgias since July from her neck down both arms down her entire back and legs. She was going to physical therapy at the
time after a left knee replacement by [facility] Dr. Miller. The knee therapy was about to be ending but the states she could have continued therapy possibly an additional month but that was not explored. Patient has not worked in
over 10 years is pretty much homebound due to chronic daily headaches and/or migraines and/or chronic daily pain .she has been seeing a bankruptcy law specialist who felt her symptoms were not rheumatological in nature and was referred back to neurology. She
had extensive rheumatological workup including normal TSH cortisol ESR CRP CK aldolase CCP vitamin B12 myositis panel. Patient has been self-medicating with Chardonnay 13% fourteen 7.8 ounce bottles daily since August 2023 with episodes 2 months ago
decreasing down to 1-2 bottles. She has also been taking oxycodone 2.5 mg every 6 hours scheduled [id number] due to headaches, neck pain, joint pain, overall myalgias. She admits she is self-medicating with alcohol for her pain undiagnosed.
It was brought to her attention by a primary care doctor she could possibly have fibromyalgia but she never explored this avenue, however she was placed on Cymbalta by her neurologist to see if this helped for pain., For which the patient states it
does not. I discussed with the patient who states she typically gets migraines 1-2 times per month after her aneurysm repair in 2006 when the barometric pressure drops she also has headaches 5 to 6 days a month for which she takes Aleve. She
reports feeling excited when going to physical therapy 3 times a week postop left knee replacement but then it was about to come to an end. This was when she said she started having overall pain, generalized pain, weakness with fear of falling.
Her states she pretty much is at home and as isolated herself I had a discussion perhaps she has a component of depression due to lack of interest, chronic overall pain, chronic headaches/migraines and alcohol abuse. The patient seemed
interested in finding someone to talk to about this whether it be a new PCP/psychiatrist, psychologist. I also encouraged her to try to reengage in physical therapy a couple times a week to have something to look forward to. Her and the
patient both seem very interested in this plan and her states that this level he would be willing to pay [id number]. Her states she has put on approximately 35 pounds I agreed that lack of mobility and interest will certainly
contribute to that he is on Zepbound but her primary care will not place her on this medication as he feels it is not a consumption of food issue. I suggested patient perhaps receive a second opinion.
Her alcohol level was 196 on arrival to the ER, yet when I was speaking to her she was awake alert oriented not slurring her speech able to move all of her extremities without difficulty.
She has past medical history of alcohol abuse HTN, HLD, psychogenic nonepileptic/pseudoseizures, major depression, pneumonia, hepatitis A, cerebral aneurysm with clip repair, PVD, former smoker, benign colonic polyps, breast cancer treated with
lumpectomy/chemotherapy, radiation therapy, obesity
Medical History
Past Medical History
Past Medical History: Reports Other
Additional Past Medical History:
alcohol abuse
HTN
HLD
psychogenic nonepileptic/pseudoseizures
major depression
pneumonia
hepatitis A
cerebral aneurysm with clip repair 2005 [facility]
PVD
former smoker 20 years 1 pack/day quit age 58
benign colonic polyps
breast cancer treated with lumpectomy/chemotherapy, radiation therapy
Obesity
Past Surgical History: Reports Other
Additional Past Surgical History:
Left knee replacement April 15, [address] [facility] [address] Miller
Cholecystectomy
Hysterectomy
section
Right hip replacement 2006
Shoulder surgery 1977
Cerebral aneurysm with clip repair
Social History
Tobacco: Former Smoker (former smoker 20 years 1 pack/day quit age 58)
Alcohol: Daily (7.48 ounce 4 bottles daily Chardonnay 13% alcohol)
Drug: None
Personal:
Living: With Family ( [place])
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
Family History
Family History: Not pertinent
Allergies / Home Medications
Allergies reflects when Allergies were last updated in [employer].
Home Medications with original date entered in [employer]
Allergy/Medication List:
Allergies
Allergy/AdvReac Type Severity Reaction Status Date / Time
Cephalosporins Allergy Rash Verified 07/17/23 06:26
codeine [Codeine] Allergy 'constricts Verified 07/17/23 06:26
breathing'
escitalopram Allergy Rash Verified 07/17/23 06:26
escitalopram oxalate Allergy Potassium Verified 07/17/23 06:26
[From Lexapro] & sodium
drops
hydrochlorothiazide Allergy fingers Verified 07/17/23 06:26
swelled
morphine Allergy 'jump out Verified 07/17/23 06:26
of my
skin'
feeling
Penicillins Allergy rash & Verified 07/17/23 06:26
constricts
breathing
varenicline tartrate Allergy nausea;bad Verified 07/17/23 06:26
[From Chantix] dreams
venom-honey bee Allergy BEE Verified 07/17/23 06:26
STINGS-BREATHING
PROBLEMS
bee stings Allergy breathing Uncoded 07/17/23 06:26
problems
Home Medications
duloxetine 60 mg capsule,delayed release 60 mg PO DAILY 10/05/17
multivitamin with folic acid 400 mcg tablet (Tab-A-Sanchez) 1 tab PO DAILY 10/05/17
simvastatin 20 mg tablet 40 mg PO HS 10/05/17
lamotrigine 200 mg tablet (Lamictal) 400 mg PO HS 03/23/23
levothyroxine 25 mcg tablet 75 mcg PO DAILY 03/23/23
potassium chloride 1 tab PO DAILY 03/23/23
candesartan 16 mg tablet 16 mg PO DAILY #0 tabs 04/16/23
clonidine HCl 0.1 mg tablet 0.1 mg PO BID #60 tabs 04/16/23
oxycodone 5 mg tablet 5 - 10 mg (1 - 2 x 5 mg) PO Q4H PRN moderate-severe pain #40 tabs 04/16/23
aspirin 81 mg tablet,delayed release 81 mg PO DAILY 07/17/23
prednisone 20 mg tablet 40 mg (2 x 20 mg) PO DAILY 3 days #6 tabs 07/17/23
simvastatin 40 mg tablet 40 mg PO HS 04/20/24
topiramate 50 mg tablet (Topamax) 50 mg PO BID 04/20/24
Review of Systems
-
History Source: Patient and Family ( [place] at bedside)
A 12 point ROS was completed and negative except as noted: Yes
Constitutional: Reports Weight Gain (35 pounds past year); Denies Fever, Fatigue or Chills
EENT: Reports Other (Reported slurred/garbled speech but with alcohol of 169); Denies Sore Throat or Runny Nose
Respiratory: Denies Cough or Trouble Breathing
Cardiac: Denies Chest Pain, Diaphoresis, Palpitations or Syncope
Abdomen/GI: Denies Abdominal Pain, Nausea, Vomiting, Diarrhea, Constipated, Bloody Stools or Black Stools
: Denies Dysuria, Frequency, Flank Pain, Incontinence, Difficulty Voiding or Urgency
Musculoskeletal: Reports Joint Pain (Chronic no obvious swelling) and Muscle Pain (Chronic myalgias entire body)
Skin: Denies Itching or Rash
Neurological: Reports Headache; Denies Dizzy, Weakness or Numbness
Endocrine: Reports No Symptoms
Hematologic/Lymphatic: Reports No Symptoms
Psych: Reports Calm
Physical Exam
Vital Signs
Vital Signs
Pulse Resp BP Pulse Ox
99 18 155/89 95
04/20/24 18:21 04/20/24 18:21 04/20/24 18:21 04/20/24 18:21
Physical Exam
General: Comfortable, Conversant, Pain (Reported headache) and Obese; No Fever or Chills
HEENT: NormoCephalic, Anicteric, Moist mucous membranes, PERRLA, [place] Conjunctivae, No Ptosis and Neck Nontender
Respiratory: Clear; No Wheezes or Rales
Cardiac: S1/S2 and Regular Rhythm; No Murmur, Rub, Gallop or Peripheral Edema
Breast: Deferred by me
GI: Soft, Non Tender, Non Distended, Normal Bowel Sounds and No Hepatosplenomegaly
Rectal: Deferred by Provider
Genito-urinary: Deferred by me
Musculoskeletal: No Clubbing, No Cyanosis and No Edema
Skin: Warm and Dry; No Rash or Jaundice
Neuro: AO x 3, No Motor Deficits, Cranial Nerves Intact, No Sensory Deficits and Other; No Slurred Speech, Facial Droop, Tremors or Sedated
Psych: Calm
Laboratory Results
-
04/20/24 18:31
04/20/24 18:31
Laboratory Results
PT 12.3 Sec (11.4-14.6) 04/20/24 18:31
INR 0.87 04/20/24 18:31
APTT 24.3 Sec (23.4-35.0) 04/20/24 18:31
Total Bilirubin 0.3 mg/dl (0.2-1.3) 04/20/24 18:
AST 128 U/L (14-36) H 04/20/24 18:31
ALT 121 U/L (0-35) H 04/20/24 18:31
Alkaline Phosphatase 186 U/L (38-126) H 04/20/24 18:31
Data Reviewed
-
CT Scan: Report Reviewed by me
Lab Data: Labs Reviewed by me
Impression/Plan
-
Impression/plan:
Admit to telemetry
#Headache with language deficits concern for CVA versus Alcohol intoxication versus chronic headache/migraine
-Last seen normal 16:30 PM woke up 1730 p.m. with severe headache
-Consult neurology
-MRI brain
-Check lipid profile, HgbA1c
-Tylenol as needed headache
-IV NSS
-IV Zofran
-Check B12 level
CT head: No acute intracranial abnormality
#Carotid stenosis right carotid bulb>75 %
-Consult vascular surgery
-
CTA head and neck: Moderate plaque in the right carotid bulb resulting in approximately 75% stenosis of the proximal right internal carotid artery otherwise no significant vascular occlusion, aneurysm or dissection
#Alcohol intoxication Likely causing current headaches-patient self-reports is using for pain control
Alcohol level 196
-Check UDS salicylate, acetaminophen level, urine drug screen
-Banana bag
-MSAs screen with protocol
-IV thiamine, IV folate
EKG: NSR 98 bpm, QTc 474 MS otherwise normal
#Acute transaminitis likely secondary to alcohol abuse versus fatty liver
AST 128, ALT 121, alk phos 186
-Follow CMP
#Migraine headaches 1 to 2/month
Monthly headaches 5 to 6/month
-Advised cessation of alcohol and opiates as this exacerbates migraines
-Continue Topamax 50 mg twice daily
#Acute on depression-major
-Continue Cymbalta
-Consult psychiatry
#Chronic pain/myalgias likely secondary to depression
Had complete negative rheumatological workup by [facility] Dr. Cristel Santillan
-She just finished course of prednisone 20 mg x 3 days 15 x 3, 10 x 3, 5 mg x 3 which ended yesterday 04/19/2024
Hold new methylprednisone has been unsure of dose
#HTN�Benign
BP 155/89
-Continue clonidine, candesartan with hold parameters
Psychogenic nonepileptic/pseudoseizures
-Continue Lamictal 400 mg at bedtime, Topamax 50 mg twice daily
#Cerebral aneurysm with clip repair 2005 [facility]
#Class I obesity due to excess calorie consumption/immobility BMI 32
-Patient interested in Zepbound medications that her is on I advised patient to find new PCP as her current PCP will not prescribe
Other PMH:
pneumonia
hepatitis A
PVD
former smoker 25 years 1 pack/day quit 10 years ago
benign colonic polyps,
breast cancer treated with lumpectomy/chemotherapy, radiation therapy, obesity
DVT prophylaxis
SCDs
Full code
[2024-04-20 20:00] VITALS: BP 158/85
[2024-04-20 20:17] LABS: Acetaminophen < 10 ug/ml (10-30); Salicylate < 1.0 mg/dl (2.0-20.0)
[2024-04-20 20:50] LABS: TSH Reflex To Free T4 1.69 uIU/ml (0.47-4.68)
[2024-04-20 21:09] LABS: Vitamin B12 798 pg/ml (239-931)
[2024-04-20] MEDS: MULTIVITAMIN 1011 ML IV (22:58)
[2024-04-20] MEDS: MULTIVITAMIN 1011 MG IV (22:58)
[2024-04-20 23:13] VITALS: BP 185/102
[2024-04-20] MEDS: TOPAMAX 50 MG PO (23:52)
[2024-04-20] MEDS: LIPITOR 20 MG PO (23:52)
[2024-04-20] MEDS: ATIVAN 1 MG IV (23:53)
[2024-04-21] VITALS (15 sets, daily range): BP systolic 118–183; BP diastolic 74–157
[2024-04-21] MEDS: LAMICTAL 400 MG PO ×2 (00:03→21:11)
[2024-04-21] MEDS: THIAMINE INJECTION 200 MG IV ×4 (00:06→22:49)
[2024-04-21 00:31] LABS: APTT 24.2 Sec (23.4-35.0); INR 0.91; PT 12.8 Sec (11.4-14.6)
[2024-04-21 00:49] LABS: GGTP 274 U/L (12-43); Magnesium 2.7 mg/dl (1.6-2.3); Phosphorus 4.2 mg/dl (2.5-4.5)
[2024-04-21] MEDS: ATIVAN 1 MG IV ×2 (01:17→08:53)
[2024-04-21 01:34] LABS: B-Hydroxybutyrate 0.15 mmol/L (0.02-0.27)
[2024-04-21] MEDS: ATIVAN 1 MG PO ×4 (03:15→22:49)
[2024-04-21 03:46] LABS: Urine Albumin Trace (Neg - Trace); Urine Bilirubin Negative (Negative); Urine Character Clear (Clear); Urine Color Yellow; Urine Glucose Negative (Negative); Urine Ketone Negative (Negative); Urine Leukocyte Negative (Negative); Urine Nitrite Negative (Negative); Urine Occult Blood Negative (Negative); Urine Urobilinogen Negative (Neg - 1+)
[2024-04-21 04:00] LABS: Amphetamines Negative (Negative); Barbiturates Negative (Negative); Benzodiazepines Positive (Negative); Buprenorphine Negative (Negative); Cocaine Negative (Negative); Marijuana Negative (Negative); Methadone Negative (Negative); Methamphetamines Negative (Negative); Opiates Negative (Negative); Phencyclidine Negative (Negative); Tricyclic Antidepressants Negative (Negative)
--- NOTE | 2024-04-21 04:00 | EDRN ---
Pt. becoming increasingly tachycardic. IV fluids continue to infuse, pt. denies chest pain, pt.'s MSAS scores mildly improving. Admitting aware.
[2024-04-21 04:13] LABS: % Basophils 0.4 % (0-2); % Eosinophils 0.7 % (0-6); % Immature Granulocytes 0.9 % (0-0.5); % Lymphocytes 21.2 % (20.5-51.1); % Monocytes 9.9 % (1.7-9.3); % Neutrophils 66.9 % (42.2-75.2); Absolute Eosinophils 0.1 10^3/uL (0-0.7); Absolute Immature Granulocytes 0.1 10^3/uL (0-0.05); Absolute Lymphocytes 2.2 10^3/uL (1.2-3.4); Absolute Neutrophils 6.9 10^3/uL (1.4-6.5); Hematocrit 38.3 % (37.0-47.0); Hemoglobin 12.6 g/dL (12.0-16.0); Mean Corp Hgb Conc. 32.9 g/dL (33.0-37.0); Mean Corpuscular Hgb 33.3 pg (27.0-31.0); Mean Corpuscular Volume 101.3 fL (81.0-99.0); Mean Platelet Volume 9.8 fL (7.4-10.4); Nucleated Red Blood Cells % 0 %; Platelet Count 265 10^3/uL (130-400); Red Blood Cell Count 3.78 10^6/uL (4.20-5.40); Red Cell Dist. Width 12.8 % (11.5-14.5); White Blood Cell Count 10.2 10^3/uL (4.8-10.8)
[2024-04-21 04:22] LABS: Fentanyl, Urine Negative (Negative)
[2024-04-21 04:52] LABS: ALT (SGPT) 103 U/L (0-35); AST (SGOT) 113 U/L (14-36); Albumin 4.2 g/dl (3.5-5.0); Alkaline Phosphatase 162 U/L (38-126); Blood Urea Nitrogen 21 mg/dl (7-17); Calcium 8.5 mg/dl (8.4-10.2); Carbon Dioxide 24 mmol/L (22-30); Chloride 103 mmol/L (98-107); Estimated Creatinine Clearance 54 ml/min; Glucose 129 mg/dl (70-99); HDL Cholesterol 127 mg/dl; LDL Cholesterol, Calculated 78 mg/dl; Magnesium 2.7 mg/dl (1.6-2.3); Potassium 4.3 mmol/L (3.5-5.1); Sodium 137 mmol/L (135-145); Total Bilirubin 0.5 mg/dl (0.2-1.3); Total Cholesterol 239 mg/dl (50-199); Total Protein 6.5 g/dl (6.3-8.2); Triglyceride 174 mg/dl (10-149); Very Low Density Lipoprotein 34 mg/dl (0-30); eGFR > 60.00
[2024-04-21] MEDS: SYNTHROID 75 MCG PO (06:10)
[2024-04-21] MEDS: TOPAMAX 50 MG PO ×2 (08:44→19:44)
[2024-04-21] MEDS: CATAPRES 0.1 MG PO ×2 (08:45→19:43)
[2024-04-21] MEDS: FOLVITE 1 MG PO (08:45)
[2024-04-21] MEDS: ATACAND 16 MG PO (09:18)
[2024-04-21] MEDS: TYLENOL 650 MG PO ×2 (10:28→20:38)
--- NOTE | 2024-04-21 10:50 | W.PN.HOSP.TC ---
Today's Communication/Plan
-
MR brain
PT/OT
neuro recs
MSAS protocol
Assessment / Plan
Assessment / Plan
#Headache with language deficits concern for CVA versus Alcohol intoxication versus chronic headache/migraine
-Last seen normal 16:30 PM woke up 1730 p.m. with severe headache
-Consult neurology
-MRI brain
-cont asa
-Tylenol as needed headache
-IV NSS can be stopped as tolerated diet.
-IV Zofran
-Check B12 level -wnl.
-headche persist. Speech back to normal.
-CT head: No acute intracranial abnormality
#Carotid stenosis right carotid bulb>75 %
-Discussed with Dr. Patrick Coe recommending outpatient follow-up and evaluation. Symptomology not consistent with carotid stenosis per vascular surgery.
-CTA head and neck: Moderate plaque in the right carotid bulb resulting in approximately 75% stenosis of the proximal right internal carotid artery otherwise no significant vascular occlusion, aneurysm or dissection
#Alcohol intoxication Likely causing current headaches-patient self-reports is using for pain control
# Alcohol abuse daily basis
Alcohol level 196
-Banana bag
-MSAs screen with protocol
-IV thiamine, IV folate
-Counseled on cessation. Per patient and spouse at bedside they are trying to wean off.
#Pruritus
-benadyrl x 1 dose
-recommend lotion
#Acute transaminitis likely secondary to alcohol abuse versus fatty liver
AST 128, ALT 121, alk phos 186
-Follow CMP
#Migraine headaches 1 to 2/month
Monthly headaches 5 to 6/month
-Advised cessation of alcohol and opiates as this exacerbates migraines
-Continue Topamax 50 mg twice daily
# Depression
-Continue Cymbalta
#Chronic pain/myalgias likely secondary to depression
Had complete negative rheumatological workup by [facility] Dr. Cristel Mohile
-She just finished course of prednisone 20 mg x 3 days 15 x 3, 10 x 3, 5 mg x 3 which ended yesterday 04/19/2024
Hold new methylprednisone has been unsure of dose
Per spouse diagnosis of fibromyalgia is also being considered for patient
#HTN�Benign
-Continue clonidine, candesartan with hold parameters
-Elevated could be due to pain and alcohol abuse
Psychogenic nonepileptic/pseudoseizures
-Continue Lamictal 400 mg at bedtime, Topamax 50 mg twice daily
#Cerebral aneurysm with clip repair 2005 [facility]
#Class I obesity due to excess calorie consumption/immobility BMI 32
-Patient interested in Zepbound medications that her is on I advised patient to find new PCP as her current PCP will not prescribe
former smoker 25 years 1 pack/day quit 10 years ago
DVT prophylaxis
SCDs
Full code
PT/OT
Discussed with spouse at bedside in detail
Anticipated Discharge: Within 24 hours
Subjective/Interval History
-
Date of Service: April 21, 2024
states of itching in the legs and arms
States of severe frontal headache
states slurred speech resolved
Per pt and spouse BP runs on high side at home
tolerated breakfast
Objective Data
-
Labs:
Laboratory Results
04/21/24 04/21/24
00:11 04:02
WBC 10.2
Hgb 12.6
Hct 38.3
Plt Count 265
PT 12.8
INR 0.91
APTT 24.2
Sodium 137
Potassium 4.3
Chloride 103
Carbon Dioxide 24
BUN 21 H
Creatinine 0.9
Glucose 129 H
Calcium 8.5
Total Bilirubin 0.5
AST 113 H
ALT 103 H
Alkaline Phosphatase 162 H
Vital Signs:
Vital Signs
Temp Pulse Resp BP Pulse Ox
98.3 F 111 21 149/88 97
04/21/24 08:57 04/21/24 06:30 04/21/24 06:30 04/21/24 06:00 04/21/24 04:30
Physical Exam
-
General: Well Developed, No Apparent Distress, Pain and Other (eyes closed )
HEENT: Normocephalic, Atraumatic and Moist Mucous Membranes
Respiratory: Clear to Auscultation
Cardiac: Regular Rhythm and S1/S2; Negative Murmur, Rub or Gallop
GI: Soft, Nontender, Nondistended and Normal Bowel Sounds; Negative Organomegaly
Rectal: Deferred by Provider
Musculoskeletal: No Clubbing, No Cyanosis and No Edema
Skin: Dry; Negative Rash (no signficant rash noted. )
Neuro: Awake, Alert, Oriented, AO x 3, No Motor Deficits and Nonfocal/Grossly Intact; Negative Slurred Speech or Facial Droop
Psych: Calm
Data Reviewed
-
Total Time Spent with Patient (in minutes): 55
--- NOTE | 2024-04-21 10:53 | W.PN.NEURO.1 ---
Today's Communication / Plan
-
.
Subjective/Objective
Subjective Data
Date of Service: April 21, 2024
Neurology follow-up note.
Ms. Porras endorses 1 year of progressive left greater than right action hand tremor. The tremor interferes with her ability to hold utensils/feed herself. Herman admits to gradual progressive ambulatory decline requiring her to use a walker
with rapid worsening over the last 3 weeks. The patient admits to intermittent visual hallucinations mostly in the evening
Brain MRI wo jannie-small acute infarct in the subcortical white matter of the superior right parietal lobe.
Small chronic ischemic white matter infarcts in the frontal lobes and right parietal lobe.
Severe white matter leukoaraiosis in both cerebral hemispheres.
Small number of tiny chronic intraparenchymal microhemorrhages
Previous bifrontal craniotomy and mild encephalomalacia in the medial frontal lobes at the site of a surgically treated anterior cerebral artery aneurysm.
Severe multilevel discogenic degenerative disease in the cervical spine with multilevel disc-osteophyte complexes causing central canal stenosis and spinal cord compression.
PMH: breast CA, PNES, history of headaches, HTN, CKD, seizure DO, h/o Acom aneurysm, hypothyroidism, hiatal hernia, obesity, JANNIE, MDD, ETOh addiction, chronic pain
PSH: Right frontal craniotomy/ACom coiling (2005), cholecystectomy, Left TKR, , R lumpectomy, hysterectomy, bladder repair, right total hip replacement,
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
All: Penicillin, metoprolol, amlodipine, Celexa, codeine, morphine, ampicillin, HCTZ, CHANTIX
ROS: Constitutional: Negative. Negative for chills, fever and unexpected weight change.
Musculoskeletal: Positive for arthralgias
Neurological: Positive for hand tremor, anxiety, aphasia, visual hallucinations
General: In no acute distress.
Cardio: Tachycardic. Extremities are without cyanosis or edema.
Neuro:
Mental Status: Alert, oriented to self, place. Impaired attention. Expressive greater than receptive dysphagia. Nonfluent, no hemineglect.
Cranial Nerves: Pupils are equally round and reactive to light. EOMs full. Blinks to threat bilaterally no ptosis. No nystagmus. V1-V3 intact to light touch and pinprick bilaterally, symmetric. Face symmetric. Normal hearing AU. The palate
elevated well. SCMs and traps 5/5. Tongue midline. Mild dysarthria.
Motor: Increased motor tone at the right wrist with cogwheeling
Sensory: Limited exam due to poor attention, generalized allodynia
Coordination: Left>right action hand tremor, mild leg tremor. No voice or head tremor tremor
Gait: deferred
Spiral test�action tremor, mild micrographia
Assessment and Plan:
I. Acute right MCA territory embolic infarct. Mod right ICA stenosis
II. Extrapyramidal syndrome
III. Encephalopathy (toxic, vascular), significantly improved. Expressive aphasia.
IV. Chronic cerebral microhemorrhages, hypertensive micro angiopathy versus CAA
V. History of ACOM aneurysm status post remote clipping
. H/o PNES
VII. Severe cervical DJD.
-Continue Telemetry monitoring.
-Avoid medications known to cause tremor as a side effect (
-Utilize weighted utensils.
-Aspiration precautions.
-DAPT for 3 weeks
-GEN, Holter monitoring
-Continue thiamine
-Start Inderal LA 60 mg once a day
-Consider weaning off Topamax given expressive aphasia
-Consider switching clonidine to enteral
-Please add on Lamictal, level to admission labs
-Check ammonia
-Consider outpatient DaTscan
-Speech therapy
-Outpatient neuropsychology evaluation
-PT
-DVT prophylaxis
-Outpatient follow-up with Dr. Patrick Purvis
I personally reviewed all radiology and labs along with past medical records pertinent to current medical problems. Total time spent in patient care is 45 minutes.
Thank you for allowing us to participate in the care of this patient. We will continue to follow. Please do not hesitate to contact us with any questions or concerns.
Objective Data
Vital Signs
Temp Pulse Resp BP Pulse Ox
36.8 C 111 21 149/88 97
04/21/24 08:57 04/21/24 06:30 04/21/24 06:30 04/21/24 06:00 04/21/24 04:30
Lab Results
04/21/24 04:02
04/21/24 04:02
PT 12.8 Sec (11.4-14.6) 04/21/24 00:11
INR 0.91 04/21/24 00:11
APTT 24.2 Sec (23.4-35.0) 04/21/24 00:11
Sodium 137 mmol/L (135-145) 04/21/24 04:02
Potassium 4.3 mmol/L (3.5-5.1) 04/21/24 04:02
BUN 21 mg/dl (7-17) H 04/21/24 04:02
Glucose 129 mg/dl (70-99) H 04/21/24 04:02
Calcium 8.5 mg/dl (8.4-10.2) 04/21/24 04:02
Phosphorus 4.2 mg/dl (2.5-4.5) 04/21/24 00:11
LDL Cholesterol, Calc 78 mg/dl 04/21/24 04:02
Vitamin B12 798 pg/ml (239-931) 04/20/24 18:31
Ur Buprenorphine Negative (Negative) 04/21/24 03:31
Patient Allergies
Cephalosporins Allergy (Verified 07/17/23 06:26)
Rash
codeine [Codeine] Allergy (Verified 07/17/23 06:26)
'constricts breathing'
escitalopram Allergy (Verified 07/17/23 06:26)
Rash
escitalopram oxalate [From Lexapro] Allergy (Verified 07/17/23 06:26)
Potassium & sodium drops
hydrochlorothiazide Allergy (Verified 07/17/23 06:26)
fingers swelled
morphine Allergy (Verified 07/17/23 06:26)
'jump out of my skin' feeling
Penicillins Allergy (Verified 07/17/23 06:26)
rash & constricts breathing
varenicline tartrate [From Chantix] Allergy (Verified 07/17/23 06:26)
nausea;bad dreams
venom-honey bee Allergy (Verified 07/17/23 06:26)
BEE STINGS-BREATHING PROBLEMS
Vital Signs and Labs
-
Vital Signs and Labs:
Vital Signs
Temp Pulse Resp BP Pulse Ox
36.8 C 111 21 149/88 97
04/21/24 08:57 04/21/24 06:30 04/21/24 06:30 04/21/24 06:00 04/21/24 04:30
Lab Results
04/21/24 04:02
04/21/24 04:02
PT 12.8 Sec (11.4-14.6) 04/21/24 00:11
INR 0.91 04/21/24 00:11
APTT 24.2 Sec (23.4-35.0) 04/21/24 00:11
Sodium 137 mmol/L (135-145) 04/21/24 04:02
Potassium 4.3 mmol/L (3.5-5.1) 04/21/24 04:02
BUN 21 mg/dl (7-17) H 04/21/24 04:02
Glucose 129 mg/dl (70-99) H 04/21/24 04:02
Calcium 8.5 mg/dl (8.4-10.2) 04/21/24 04:02
Phosphorus 4.2 mg/dl (2.5-4.5) 04/21/24 00:11
LDL Cholesterol, Calc 78 mg/dl 04/21/24 04:02
Vitamin B12 798 pg/ml (778-717) 04/20/24 18:31
Ur Buprenorphine Negative (Negative) 04/21/24 03:31
Medications
-
Medications:
Generic Name Dose Route Start Last Admin
Trade Name Freq PRN Reason Stop Dose Admin
Acetaminophen 650 mg 04/20/24 23:10 04/21/24 10:28
Acetaminophen 325 Mg Tablet PO 05/18/24 23:09 650 mg
Q4HPRN PRN Administration
mild pain/DUMONT/temp> 100.4F
Atorvastatin Calcium 20 mg 04/20/24 23:00 04/20/24 23:52
Atorvastatin (Lipitor) 20 Mg Tablet PO 05/18/24 22:59 20 mg
HS JES Administration
Candesartan Cilexetil 16 mg 04/21/24 08:00 04/21/24 09:18
Candesartan 16 Mg Tablet PO 05/19/24 07:59 16 mg
DAILY JES Administration
Clonidine HCl 0.1 mg 04/21/24 08:00 04/21/24 08:45
Clonidine 0.1 Mg Tablet PO 05/19/24 07:59 0.1 mg
BID JES Administration
Diphenhydramine HCl 25 mg 04/21/24 10:38
Diphenhydramine 25 Mg Capsule PO 04/21/24 10:39
NOW STA
Folic Acid 1 mg 04/21/24 08:00 04/21/24 08:45
Folic Acid 1 Mg Tablet PO 05/19/24 07:59 1 mg
DAILY JES Administration
Folic Acid 1 mg/ Sodium 50.2 mls @ 200.8 mls/hr 04/20/24 23:10
Chloride IV 05/18/24 23:09
DAILYPRN PRN
if NPO
Lamotrigine 400 mg 04/20/24 23:00 04/21/24 00:03
Lamotrigine 100 Mg Tablet PO 05/18/24 22:59 400 mg
HS JES Administration
Levothyroxine Sodium 75 mcg 04/21/24 06:00 04/21/24 06:10
Levothyroxine 25 Mcg Tablet PO 05/19/24 05:59 75 mcg
DAILY @ 0600 JES Administration
Lorazepam 1 mg 04/20/24 23:09 04/21/24 06:11
Lorazepam 1 Mg Tablet PO 05/18/24 23:08 1 mg
Q2HPRN PRN Administration
MSAS 5-7
Lorazepam 1 mg 04/20/24 23:09 04/21/24 08:53
Lorazepam 2 Mg/Ml Vial IV 05/18/24 23:08 1 mg
Q1HPRN PRN Administration
MSAS 8-11
Lorazepam 2 mg 04/20/24 23:09
Lorazepam 2 Mg/Ml Vial IV 05/18/24 23:08
Q1HPRN PRN
MSAS > 11
Ondansetron HCl 4 mg 04/20/24 23:10
Ondansetron 4 Mg/2 Ml Vial IV 05/18/24 23:09
Q6HPRN PRN
nausea and vomiting
Sodium Chloride 0 flush 04/20/24 22:00
Sodium Chloride 0.9% (Flush) Syringe IV 05/18/24 21:59
PER PROTOCOL JES
Sodium Chloride 0 ml 04/20/24 23:09
Sodium Chloride 0.9% (Preservative Free) 10 Ml Vial IV 05/18/24 23:08
PRN PRN
To dilute IV Ativan
Protocol
Thiamine HCl 200 mg 04/21/24 00:00 04/21/24 08:46
Thiamine (100 Mg/Ml) 2 Ml Vial IV 04/23/24 16:01 200 mg
Q8 JES Administration
Thiamine HCl 100 mg 04/24/24 08:00
Thiamine 100 Mg Tablet PO 05/22/24 07:59
BID JES
Topiramate 50 mg 04/20/24 23:00 04/21/24 08:44
Topiramate 25 Mg Tablet PO 05/18/24 22:59 50 mg
BID JES Administration
Home Medications
-
Home Medications
duloxetine 60 mg capsule,delayed release 60 mg PO DAILY 10/05/17
multivitamin with folic acid 400 mcg tablet (Tab-A-Sanchez) 1 tab PO DAILY 10/05/17
levothyroxine 25 mcg tablet 75 mcg PO DAILY 03/23/23
potassium 95 mg tablet 95 mg PO DAILY ##0 03/23/23
candesartan 16 mg tablet 16 mg PO DAILY #0 tabs 04/16/23
aspirin 81 mg tablet,delayed release 81 mg PO DAILY 07/17/23
simvastatin 40 mg tablet 40 mg PO HS 04/20/24
topiramate 50 mg tablet (Topamax) 50 mg PO BID 04/20/24
cholecalciferol (vitamin D3) 50 mcg (2,000 unit) tablet (Vitamin D3) 50 mcg PO DAILY 04/21/24
clonidine HCl 0.1 mg tablet 0.1 mg PO DAILY 04/21/24
clonidine HCl 0.1 mg tablet 0.2 mg PO HS 04/21/24
lamotrigine 100 mg tablet,extended release 24 hr (Lamictal XR) 400 mg PO HS 04/21/24
magnesium oxide 400 mg PO HS 04/21/24
methylprednisolone 4 mg tablet 16 mg PO UD 04/21/24
oxycodone-acetaminophen 5 mg-325 mg tablet 0.5 tab PO BIDPRN PRN severe pain 04/21/24
[2024-04-21] MEDS: ASPIR LOW (ENTERIC COATED) 81 MG PO (11:19)
[2024-04-21] MEDS: BENADRYL 25 MG PO (11:19)
--- NOTE | 2024-04-21 12:29 | CON.MD ---
Consultation - Medical
-
patient seen chart reviewed. at bedside providing some of the hx. patient is a 68 year old woman who comes to the hospital with change in speech which had become garbled. feared she was having a stroke. he describes several such
incidents in the past year or so. patient at this point is speaking normally. she tells me her problems began in fall when she had knee replacement. she said she was very engaged in physical therapy and felt she was making some headway until july
when she just stopped being able to continue 'it was like a switch my body just stopped'. she started to have pain all over her body. she felt extremely weak. she sought consultation with neurology endocrinology and rheumatology and reportedly had
a full workup with each and have been told by each of them that the problem is not in their specialty and it has been suggested that it is psychiatric and /or related to her alcohol usage. her feels neurology has been the most helpful to
them overall. she does have a seizure disorder (it is reported in the chart variously including 'non epileptifrom')for which she takes lamotrogine 400 mg and topamax 50 mg bid. she does admit she has been depressed since the spring. she was placed
on cymbalta up to 120 mg and it did help her at that dose. at current 60 mg dosage (she is not sure why it was decreased it has not been helpful). she has little energy. she does not enjoy much. she has had vague suicidal thoughts but no intent
or plan there is nothing to suggest psychosis
past psych hx no hospitalizations some therapy in recent months but she did not find it helpful she has been on lexapro in the past and cymbalta see above. reports elavil tried but she felt cognitively slowed
medical hx patient w hx as abobve. transaminitis elevated mg glucose chol tg tsh nl b12 nl macrocytosis w nl hgb cat brain small vessel disease patient had cerebral aneurysm clipped ( describes 'migraines' since) 75 per cent
occlusion or right int carotid hx breast ca hx htn hld pvd colon polyps hx orthopedic surgeries obesity hypothyroid
fh denied
substance abuse etoh four + 6 0z glasses wine per day for months patient does have long periods of sobriety in the past up to nine years
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
mse patient initially very alert c/o leg itching. once we got her dry skin cream and applied it, she then started drifting off to sleep. she was fully oriented and able to give hx prior. she of note had received ativan a short time before i saw
her as per msas. thought process and speech were nl she was depressed affect normal no current si no psychosis insight judgment fair
dx unspecified depression etoh use disorder etoh withdrawal chronic pain etiology unknown
recommendations would reincrease cymbalta to 90 mg given the fact that she felt it helped at higher dose. continue msas. talked to patient about gabapentin for pain but she is already on lamictal and topamax. i defer to neuro as to whether this
could be helpful. gabapentin can also help with obtaining sobriety. check vit d which h said was low. check folate as macrocytosis w nl b12 h says patient wants to go home wm. i would be very wary of etoh wd. i defer to hospitalist as to
whether this would be advisable. she was told she must stop drinking if she is to recover. she should consider if she cannot be sober an out patient program to help with sobriety.
[2024-04-21 13:59] LABS: Vitamin D, 25-OH*** 50.4 ng/mL (30-80)
[2024-04-21 14:49] LABS: Folate > 20.0 ng/ml (2.76-20)
[2024-04-21] MEDS: PLAVIX 75 MG PO (17:19)
[2024-04-21 17:43] LABS: Ammonia < 9 umol/L (9-30)
[2024-04-21] MEDS: LIPITOR 20 MG PO (21:11)
[2024-04-22] VITALS (8 sets, daily range): BP systolic 152–190; BP diastolic 88–118; PULSE 105–108; O2SAT 99; BMI 31.6
[2024-04-22] MEDS: SYNTHROID 75 MCG PO (05:07)
[2024-04-22 05:45] LABS: % Basophils 0.4 % (0-2); % Eosinophils 2.1 % (0-6); % Immature Granulocytes 1.9 % (0-0.5); % Lymphocytes 18.2 % (20.5-51.1); % Monocytes 8.2 % (1.7-9.3); % Neutrophils 69.2 % (42.2-75.2); Absolute Eosinophils 0.2 10^3/uL (0-0.7); Absolute Immature Granulocytes 0.2 10^3/uL (0-0.05); Absolute Lymphocytes 1.8 10^3/uL (1.2-3.4); Absolute Monocytes 0.8 10^3/uL (0.1-0.6); Absolute Neutrophils 6.8 10^3/uL (1.4-6.5); Hematocrit 39.2 % (37.0-47.0); Hemoglobin 12.9 g/dL (12.0-16.0); Mean Corp Hgb Conc. 32.9 g/dL (33.0-37.0); Mean Corpuscular Hgb 33.4 pg (27.0-31.0); Mean Corpuscular Volume 101.6 fL (81.0-99.0); Mean Platelet Volume 9.7 fL (7.4-10.4); Nucleated Red Blood Cells % 0 %; Platelet Count 225 10^3/uL (130-400); Red Blood Cell Count 3.86 10^6/uL (4.20-5.40); Red Cell Dist. Width 12.9 % (11.5-14.5); White Blood Cell Count 9.8 10^3/uL (4.8-10.8)
[2024-04-22 06:13] LABS: ALT (SGPT) 89 U/L (0-35); AST (SGOT) 62 U/L (14-36); Albumin 4.1 g/dl (3.5-5.0); Alkaline Phosphatase 154 U/L (38-126); Blood Urea Nitrogen 15 mg/dl (7-17); Calcium 9.5 mg/dl (8.4-10.2); Carbon Dioxide 23 mmol/L (22-30); Chloride 107 mmol/L (98-107); Estimated Creatinine Clearance 55 ml/min; Glucose 126 mg/dl (70-99); Potassium 4.6 mmol/L (3.5-5.1); Sodium 139 mmol/L (135-145); Total Bilirubin 0.4 mg/dl (0.2-1.3); Total Protein 6.4 g/dl (6.3-8.2); eGFR > 60.00
[2024-04-22] MEDS: PLAVIX 75 MG PO (08:46)
[2024-04-22] MEDS: ASPIR LOW (ENTERIC COATED) 81 MG PO (08:46)
[2024-04-22] MEDS: CYMBALTA DELAYED RELEASE 90 MG PO (08:46)
[2024-04-22] MEDS: FOLVITE 1 MG PO (08:47)
[2024-04-22] MEDS: TOPAMAX 50 MG PO (08:47)
[2024-04-22] MEDS: CATAPRES 0.1 MG PO (08:47)
[2024-04-22] MEDS: THIAMINE INJECTION 200 MG IV ×2 (08:48→16:46)
[2024-04-22] MEDS: ATIVAN 1 MG PO (09:03)
[2024-04-22] MEDS: ATACAND 16 MG PO (09:29)
--- NOTE | 2024-04-22 11:48 | W.PN.HOSP.TC ---
Today's Communication/Plan
-
Aspirin and Plavix
Started on propranolol
PT and OT eval pending
Wants to go home�outpatient carotid ultrasound and echocardiogram and vascular surgery follow-up
Recommended strict blood pressure control propranolol should help. Follow-up with PCP.
Assessment / Plan
Assessment / Plan
#Headache with language deficits concern for CVA versus Alcohol intoxication versus chronic headache/migraine
#ACUTE ISCHEMIC INFARCT in the SUBCORTICAL WHITE MATTER of the SUPERIOR RIGHT PARIETAL LOBE.
-MRI brain d/w with patient and spouse
-Plan for DAPT 21d
-Tylenol as needed headache
-IV NSS can be stopped as tolerated diet.
-IV Zofran
-Check B12 level -wnl.
-headche resolved. Speech back to normal.
-CT head: No acute intracranial abnormality
-Echo ordered per neurology. However patient and spouse does not want to wait till Wednesday. Recommended outpatient evaluation with primary doctor.
-Patient also has follow-up appointment with primary neurologist on Wednesday.
#Carotid stenosis right carotid bulb>75 %
-Discussed with Dr. Patrick Coe recommending outpatient follow-up and evaluation. Symptomatology not consistent with carotid stenosis per vascular surgery. Patient family verbalized understanding
-CTA head and neck: Moderate plaque in the right carotid bulb resulting in approximately 75% stenosis of the proximal right internal carotid artery otherwise no significant vascular occlusion, aneurysm or dissection
#Alcohol intoxication Likely causing current headaches-patient self-reports is using for pain control
# Alcohol abuse daily basis
Alcohol level 196
-Banana bag
-MSAs screen with protocol
-IV thiamine, IV folate
-Counseled on cessation. Per patient and spouse at bedside they are trying to wean off.
#Pruritus
-benadyrl x 1 dose
-recommend lotion
#Acute transaminitis likely secondary to alcohol abuse versus fatty liver
AST 128, ALT 121, alk phos 186
-Follow CMP
#Migraine headaches 1 to 2/month
Monthly headaches 5 to 6/month
-Advised cessation of alcohol and opiates as this exacerbates migraines
-Continue Topamax 50 mg twice daily
# Depression
-Continue Cymbalta and dose increase to 90 mg
#Chronic pain/myalgias likely secondary to depression
Had complete negative rheumatological workup by [facility]ology [facility] Dr. Cristel Santillan
-She just finished course of prednisone 20 mg x 3 days 15 x 3, 10 x 3, 5 mg x 3 which ended yesterday 04/19/2024
Hold new methylprednisone has been unsure of dose
Per spouse diagnosis of fibromyalgia is also being considered for patient
#HTN�Benign
-Continue clonidine, candesartan with hold parameters
-Elevated could be due to pain and alcohol abuse
Psychogenic nonepileptic/pseudoseizures
-Continue Lamictal 400 mg at bedtime, Topamax 50 mg twice daily
#Cerebral aneurysm with clip repair 2005 [facility]
#Class I obesity due to excess calorie consumption/immobility BMI 32
-Patient interested in Zepbound medications that her is on I advised patient to find new PCP as her current PCP will not prescribe
former smoker 25 years 1 pack/day quit 10 years ago
Suspected essential tremors
Start patient on propranolol
Discussed with discussed with patient and spouse at bedside to check daily blood pressure and heart rate.
DVT prophylaxis
SCDs
Full code
PT/OT eval pending
Discussed with spouse at bedside in detail
Anticipated Discharge: Today
Subjective/Interval History
-
Date of Service: April 22, 2024
Since resolution of slurred speech
Intermittent tremors
States feeling significantly better
No headache
Tolerating diet
Does not stay in the hospital wants to go home.
Objective Data
-
Labs:
Laboratory Results
04/22/24
05:17
WBC 9.8
Hgb 12.9
Hct 39.2
Plt Count 225
Sodium 139
Potassium 4.6
Chloride 107
Carbon Dioxide 23
BUN 15
Creatinine 0.9
Glucose 126 H
Calcium 9.5
Total Bilirubin 0.4
AST 62 H
ALT 89 H
Alkaline Phosphatase 154 H
Vital Signs:
Vital Signs
Temp Pulse Resp BP Pulse Ox
98.4 F 103 18 170/104 92
04/22/24 11:36 04/22/24 11:36 04/22/24 11:36 04/22/24 11:36 04/22/24 11:36
I&O
04/21/24 04/22/24 04/23/24
06:59 06:59 06:59
Output Total 1600 / 1600
Balance -1600 / -1600
Physical Exam
-
General: Well Developed, Well Nourished and No Apparent Distress
HEENT: Normocephalic, Atraumatic and Moist Mucous Membranes
Respiratory: Clear to Auscultation
Cardiac: Regular Rhythm and S1/S2; Negative Murmur, Rub or Gallop
GI: Soft, Nontender, Nondistended and Normal Bowel Sounds; Negative Organomegaly
Rectal: Deferred by Provider
Musculoskeletal: No Clubbing, No Cyanosis and No Edema
Skin: Dry; Negative Rash (no signficant rash noted. )
Neuro: Awake, Alert, Oriented, AO x 3, Tremors, Nonfocal/Grossly Intact and No Sensory Deficits; Negative Slurred Speech or Facial Droop
Psych: Calm
Data Reviewed
-
Total Time Spent with Patient (in minutes): 55
--- NOTE | 2024-04-22 12:59 | W.DCSUMMARY ---
Discharge Summary
Discharge Data
Date of Admission: 04/20/24
Date of Discharge: 04/22/24
-
Pending Results: No
Hospital Course
60-year-old female past medical history of hypertension hyperlipidemia alcohol abuse, seizures, major depression, cerebral aneurysm with clip repair, PVD, history of tobacco abuse, colonic polyps, breast cancer s/p lumpectomy, chemo and radiation,
obesity, chronic CVA was presenting from home with severe headache, and slurred speech. CT head was negative. Patient underwent MRI of the brain which showed SMALL 4.3 mm ACUTE ISCHEMIC INFARCT in the SUBCORTICAL WHITE MATTER of the SUPERIOR RIGHT
PARIETAL LOBE. Small chronic ischemic white matter infarcts in the frontal lobes and right parietal lobe. Small number of tiny chronic intraparenchymal microhemorrhages consistent with HYPERTENSIVE MICROANGIOPATHY. Severe white matter leukoaraiosis
in both cerebral hemispheres. Previous bifrontal craniotomy and mild encephalomalacia in the medial frontal lobes at the site of a surgically treated anterior cerebral artery aneurysm.
6. Severe multilevel discogenic degenerative disease in the cervical spine with multilevel disc-osteophyte complexes causing central canal stenosis and spinal cord compression. Plan would be for dual antiplatelet agent for 21 days and then stop
Plavix. Per neurology patient was also started on propranolol for tremors. Patient was also eval by psych and Cymbalta dose was increased. Patient was also underwent withdrawal protocol for alcohol. Patient slurred speech resolved. Patient
headache resolved. Patient also went CT angiogram which showed a right-sided carotid stenosis. Discussed case with vascular surgery Dr. Patrick Coe who recommended patient to be seen in the office where further discussion can be held for
appropriate intervention if any is required. Carotid ultrasound and transthoracic echocardiogram and MRI cervical spine was ordered to further evaluate for patient symptomology. Patient and patient's spouse were informed of severe cervical
osteoarthritis with canal stenosis and MRI cervical spine was ordered by neurology to assess further. Patient and spouse did not want to stay for any studies to be completed and stated they will follow-up outpatient with primary neurologist and
primary doctor. They stated patient has appointment with primary neurologist on 04/24/2024 and they will follow-up with him for further workup for stroke and cervical osteoarthritis.. Patient was eval by physical and Occupational Therapy with
recommendation for acute rehab at SNF. Patient and spouse both refused and wanted to go home. Patient understand to follow-up outpatient with also with vascular surgery.
Discharge Plan
-
Patient Disposition: Home with Home Care
Discharge Diagnosis/Procedures: Acute ischemic CVA right parietal lobe
Chronic CVA
Severe headache
Severe cervical osteoarthritis
Depression
Carotid stenosis
Alcohol intoxication/withdrawal
Acute transaminitis
Condition: Fair
Diet: Low Fat and Low Cholesterol
Activity: With assistance and As tolerated
Driving Restrictions: Not until seen by your Dr
Blood Work: CMP in 7-10 days via primary doctor.
Others Tests: ECHO and Carotid Ultrasound and MRI Cervical spine with primary doctor and primary neurologist.
Other Services: VN
Activity Restrictions/Additional Instructions:
Follow-up with your primary neurologist for further next step in regards for evaluation for CVA including echocardiogram, carotid ultrasound and MRI of the cervical spine.
Referrals:
Patrick Coe III, MD [Active] - 05/08/24 3:45 pm (For carotid stenosis)
Joselin Proctor DO [Family Provider] - in less than 1 week
Prescriptions:
New
propranolol 60 mg Capsule,Extended Release 24 Hr
60 mg PO DAILY 30 Days Qty: 30 0RF
clopidogrel 75 mg Tablet
75 mg PO DAILY 19 Days Qty: 19 0RF
duloxetine 30 mg Capsule,Delayed Release(/Ec)
90 mg PO DAILY 30 Days Qty: 90 0RF
Continued
multivitamin with folic acid [Tab-A-Sanchez] 1 TABLET tablet
1 tab PO DAILY
levothyroxine 25 MCG tablet
75 mcg PO DAILY
potassium 95 mg Tablet
95 mg PO DAILY Qty: 0
candesartan 16 MG tablet
16 mg PO DAILY Qty: 0 0RF
Rx Instructions:
HOLD IF systolic blood pressure <130 while on Oxycodone.
aspirin 81 mg Tablet,Delayed Release (Dr/Ec)
81 mg PO DAILY
simvastatin 40 mg Tablet
40 mg PO HS
topiramate [Topamax] 50 mg Tablet
50 mg PO BID
oxycodone-acetaminophen 5-325 mg Tablet
0.5 tab PO BIDPRN PRN (Reason: severe pain)
methylprednisolone 4 mg tablet
16 mg PO UD
Rx Instructions:
satrting 04/20/24 take 4 tablets daily for 3 days then 3 tablets daily for 3 days then 2 tablets for 3 days then 1 tablet for 3 days
clonidine HCl 0.1 mg Tablet
0.1 mg PO DAILY
clonidine HCl 0.1 mg Tablet
0.2 mg PO HS
cholecalciferol (vitamin D3) [Vitamin D3] 50 mcg (2,000 unit) Tablet
50 mcg PO DAILY
lamotrigine [Lamictal XR] 100 mg Tablet Extended Release 24hr
400 mg PO HS
magnesium oxide 400 mg magnesium Capsule
400 mg PO HS
Discontinued
duloxetine 60 MG capsule,delayed release(DR/EC)
60 mg PO DAILY
Discharge Orders:
Discharge Patient (As Directed); Ordered 04/22/24
Ordered By: Alexander Peña
Discharge Date and Time
Discharge Date/Time: 04/22/24 17:31
Print Language: KITTITIAN
[2024-04-22] MEDS: INDERAL LA 60 MG PO (13:07)
--- NOTE | 2024-04-22 14:10 | W.PN.NEURO.1 ---
Today's Communication / Plan
-
.
Subjective/Objective
Subjective Data
Date of Service: April 22, 2024
Neurology follow-up note.
Ms. Porras endorses limited sleep last night. No reports of new motor, sensory visual symptoms
Brain MRI wo jannie(04/21/2024) -small acute infarct in the subcortical white matter of the superior right parietal lobe.
Small chronic ischemic white matter infarcts in the frontal lobes and right parietal lobe.
Severe white matter leukoaraiosis in both cerebral hemispheres.
Small number of tiny chronic intraparenchymal microhemorrhages
Previous bifrontal craniotomy and mild encephalomalacia in the medial frontal lobes at the site of a surgically treated anterior cerebral artery aneurysm.
Severe multilevel discogenic degenerative disease in the cervical spine with multilevel disc-osteophyte complexes causing central canal stenosis and spinal cord compression.
Labs: LDL�34, normal vitamin B12, folate, vitamin D.
TTE-pending
PMH: breast CA, PNES, history of headaches, HTN, CKD, seizure DO, h/o Acom aneurysm, hypothyroidism, hiatal hernia, obesity, JANNIE, MDD, ETOh addiction, chronic pain
PSH: Right frontal craniotomy/ACom coiling (2005), cholecystectomy, Left TKR, , R lumpectomy, hysterectomy, bladder repair, right total hip replacement,
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
All: Penicillin, metoprolol, amlodipine, Celexa, codeine, morphine, ampicillin, HCTZ, CHANTIX
ROS: Constitutional: Negative. Negative for chills, fever and unexpected weight change.
Musculoskeletal: Positive for arthralgias
Neurological: Positive for hand tremor, anxiety, aphasia, visual hallucinations
General: In no acute distress.
Cardio: Tachycardic. Extremities are without cyanosis or edema.
Neuro:
Mental Status: Alert, oriented to self, place. Impaired attention. Expressive greater than receptive dysphagia. Nonfluent, no hemineglect.
Cranial Nerves: Pupils are equally round and reactive to light. EOMs full. Blinks to threat bilaterally no ptosis. No nystagmus. V1-V3 intact to light touch and pinprick bilaterally, symmetric. Face symmetric. Normal hearing AU. The palate
elevated well. SCMs and traps 5/5. Tongue midline. Mild dysarthria.
Motor: Increased motor tone at the right wrist with cogwheeling. Proximal arm and leg weakness. Limited exam due to cooperation.
Sensory: Limited exam due to poor attention, generalized allodynia
Coordination: Left>right action hand tremor, mild leg tremor. No voice or head tremor tremor
Gait: deferred
Assessment and Plan:
I. Acute right MCA territory embolic infarct. Mod right ICA stenosis
II. Extrapyramidal syndrome
III. Encephalopathy (toxic, vascular), clinically improved expressive aphasia.
IV. Chronic cerebral microhemorrhages, hypertensive micro angiopathy versus CAA
V. History of ACOM aneurysm status post remote clipping
. H/o PNES
VII. Severe cervical DJD.
-Continue Telemetry monitoring.
-Fall precautions
-DAPT for 3 weeks
-GEN, Holter monitoring
-Continue thiamine
-Start Inderal LA 60 mg once a day
-Consider weaning off Topamax given expressive aphasia
-Consider switching clonidine to enteral
-C-spine MRI without jannie
-Please add on Lamictal, level to admission labs
-Consider outpatient DaTscan
-Speech therapy
-Outpatient neuropsychology evaluation
-PT
-DVT prophylaxis
I personally reviewed all radiology and labs along with past medical records pertinent to current medical problems. Total time spent in patient care is 35 minutes.
Thank you for allowing us to participate in the care of this patient. We will continue to follow. Please do not hesitate to contact us with any questions or concerns.
Objective Data
Vital Signs
Temp Pulse Resp BP Pulse Ox
36.9 C 100 18 170/105 92
04/22/24 11:36 04/22/24 13:07 04/22/24 11:36 04/22/24 13:07 04/22/24 11:36
Lab Results
04/22/24 05:17
04/22/24 05:17
PT 12.8 Sec (11.4-14.6) 04/21/24 00:11
INR 0.91 04/21/24 00:11
APTT 24.2 Sec (23.4-35.0) 04/21/24 00:11
Sodium 139 mmol/L (135-145) 04/22/24 05:17
Potassium 4.6 mmol/L (3.5-5.1) 04/22/24 05:17
BUN 15 mg/dl (7-17) 04/22/24 05:17
Glucose 126 mg/dl (70-99) H 04/22/24 05:17
Calcium 9.5 mg/dl (8.4-10.2) 04/22/24 05:17
Phosphorus 4.2 mg/dl (2.5-4.5) 04/21/24 00:11
LDL Cholesterol, Calc 78 mg/dl 04/21/24 04:02
Vitamin B12 798 pg/ml (239-931) 04/20/24 18:31
Ur Buprenorphine Negative (Negative) 04/21/24 03:31
Patient Allergies
Cephalosporins Allergy (Verified 07/17/23 06:26)
Rash
codeine [Codeine] Allergy (Verified 07/17/23 06:26)
'constricts breathing'
escitalopram Allergy (Verified 07/17/23 06:26)
Rash
escitalopram oxalate [From Lexapro] Allergy (Verified 07/17/23 06:26)
Potassium & sodium drops
hydrochlorothiazide Allergy (Verified 07/17/23 06:26)
fingers swelled
morphine Allergy (Verified 07/17/23 06:26)
'jump out of my skin' feeling
Penicillins Allergy (Verified 07/17/23 06:26)
rash & constricts breathing
varenicline tartrate [From Chantix] Allergy (Verified 07/17/23 06:26)
nausea;bad dreams
venom-honey bee Allergy (Verified 07/17/23 06:26)
BEE STINGS-BREATHING PROBLEMS
Vital Signs and Labs
-
Vital Signs and Labs:
Vital Signs
Temp Pulse Resp BP Pulse Ox
36.9 C 100 18 170/105 92
04/22/24 11:36 04/22/24 13:07 04/22/24 11:36 04/22/24 13:07 04/22/24 11:36
Lab Results
04/22/24 05:17
04/22/24 05:17
PT 12.8 Sec (11.4-14.6) 04/21/24 00:11
INR 0.91 04/21/24 00:11
APTT 24.2 Sec (23.4-35.0) 04/21/24 00:11
Sodium 139 mmol/L (135-145) 04/22/24 05:17
Potassium 4.6 mmol/L (3.5-5.1) 04/22/24 05:17
BUN 15 mg/dl (7-17) 04/22/24 05:17
Glucose 126 mg/dl (70-99) H 04/22/24 05:17
Calcium 9.5 mg/dl (8.4-10.2) 04/22/24 05:17
Phosphorus 4.2 mg/dl (2.5-4.5) 04/21/24 00:11
LDL Cholesterol, Calc 78 mg/dl 04/21/24 04:02
Vitamin B12 798 pg/ml (239-931) 04/20/24 18:31
Ur Buprenorphine Negative (Negative) 04/21/24 03:31
Medications
-
Medications:
Generic Name Dose Route Start Last Admin
Trade Name Freq PRN Reason Stop Dose Admin
Acetaminophen 650 mg 04/20/24 23:10 04/21/24 20:38
Acetaminophen 325 Mg Tablet PO 05/18/24 23:09 650 mg
Q4HPRN PRN Administration
mild pain/DUMONT/temp> 100.4F
Aspirin 81 mg 04/21/24 11:09 04/22/24 08:46
Aspirin 81 Mg (Enteric Coated) Tablet PO 05/19/24 11:08 81 mg
DAILY JES Administration
Atorvastatin Calcium 20 mg 04/20/24 23:00 04/21/24 21:11
Atorvastatin (Lipitor) 20 Mg Tablet PO 05/18/24 22:59 20 mg
HS JES Administration
Candesartan Cilexetil 16 mg 04/21/24 08:00 04/22/24 09:29
Candesartan 16 Mg Tablet PO 05/19/24 07:59 16 mg
DAILY JES Administration
Clonidine HCl 0.1 mg 04/21/24 08:00 04/22/24 08:47
Clonidine 0.1 Mg Tablet PO 05/19/24 07:59 0.1 mg
BID JES Administration
Clopidogrel Bisulfate 75 mg 04/21/24 17:00 04/22/24 08:46
Clopidogrel 75 Mg Tablet PO 05/11/24 08:01 75 mg
DAILY JES Administration
Duloxetine HCl 90 mg 04/22/24 08:00 04/22/24 08:46
Duloxetine Delayed Release 30 Mg Capsule PO 05/20/24 07:59 90 mg
DAILY JES Administration
Folic Acid 1 mg 04/21/24 08:00 04/22/24 08:47
Folic Acid 1 Mg Tablet PO 05/19/24 07:59 1 mg
DAILY JES Administration
Folic Acid 1 mg/ Sodium 50.2 mls @ 200.8 mls/hr 04/20/24 23:10
Chloride IV 05/18/24 23:09
DAILYPRN PRN
if NPO
Lamotrigine 400 mg 04/20/24 23:00 04/21/24 21:11
Lamotrigine 100 Mg Tablet PO 05/18/24 22:59 400 mg
HS JES Administration
Levothyroxine Sodium 75 mcg 04/21/24 06:00 04/22/24 05:07
Levothyroxine 25 Mcg Tablet PO 05/19/24 05:59 75 mcg
DAILY @ 0600 JES Administration
Lorazepam 1 mg 04/20/24 23:09 04/22/24 09:03
Lorazepam 1 Mg Tablet PO 05/18/24 23:08 1 mg
Q2HPRN PRN Administration
MSAS 5-7
Lorazepam 1 mg 04/20/24 23:09 04/21/24 08:53
Lorazepam 2 Mg/Ml Vial IV 05/18/24 23:08 1 mg
Q1HPRN PRN Administration
MSAS 8-11
Lorazepam 2 mg 04/20/24 23:09
Lorazepam 2 Mg/Ml Vial IV 05/18/24 23:08
Q1HPRN PRN
MSAS > 11
Ondansetron HCl 4 mg 04/20/24 23:10
Ondansetron 4 Mg/2 Ml Vial IV 05/18/24 23:09
Q6HPRN PRN
nausea and vomiting
Propranolol HCl 60 mg 04/22/24 12:00 04/22/24 13:07
Propranolol Extended Release 60 Mg Capsule (24hr) PO 05/20/24 11:59 60 mg
DAILY JES Administration
Sodium Chloride 0 flush 04/20/24 22:00
Sodium Chloride 0.9% (Flush) Syringe IV 05/18/24 21:59
PER PROTOCOL JES
Sodium Chloride 0 ml 04/20/24 23:09
Sodium Chloride 0.9% (Preservative Free) 10 Ml Vial IV 05/18/24 23:08
PRN PRN
To dilute IV Ativan
Protocol
Thiamine HCl 200 mg 04/21/24 00:00 04/22/24 08:48
Thiamine (100 Mg/Ml) 2 Ml Vial IV 04/23/24 16:01 200 mg
Q8 JES Administration
Thiamine HCl 100 mg 04/24/24 08:00
Thiamine 100 Mg Tablet PO 05/22/24 07:59
BID JES
Topiramate 50 mg 04/20/24 23:00 04/22/24 08:47
Topiramate 25 Mg Tablet PO 05/18/24 22:59 50 mg
BID JES Administration
Home Medications
-
Home Medications
duloxetine 60 mg capsule,delayed release 60 mg PO DAILY 10/05/17
multivitamin with folic acid 400 mcg tablet (Tab-A-Sanchez) 1 tab PO DAILY 10/05/17
levothyroxine 25 mcg tablet 75 mcg PO DAILY 03/23/23
potassium 95 mg tablet 95 mg PO DAILY ##0 03/23/23
candesartan 16 mg tablet 16 mg PO DAILY #0 tabs 04/16/23
aspirin 81 mg tablet,delayed release 81 mg PO DAILY 07/17/23
simvastatin 40 mg tablet 40 mg PO HS 04/20/24
topiramate 50 mg tablet (Topamax) 50 mg PO BID 04/20/24
cholecalciferol (vitamin D3) 50 mcg (2,000 unit) tablet (Vitamin D3) 50 mcg PO DAILY 04/21/24
clonidine HCl 0.1 mg tablet 0.1 mg PO DAILY 04/21/24
clonidine HCl 0.1 mg tablet 0.2 mg PO HS 04/21/24
lamotrigine 100 mg tablet,extended release 24 hr (Lamictal XR) 400 mg PO HS 04/21/24
magnesium oxide 400 mg PO HS 04/21/24
methylprednisolone 4 mg tablet 16 mg PO UD 04/21/24
oxycodone-acetaminophen 5 mg-325 mg tablet 0.5 tab PO BIDPRN PRN severe pain 04/21/24
clopidogrel 75 mg tablet 75 mg PO DAILY 19 days #19 tabs 04/22/24
propranolol 60 mg capsule,24 hr,extended release 60 mg PO DAILY 30 days #30 caps 04/22/24
--- NOTE | 2024-04-22 14:58 | CM ---
Addendum entered by Tuyet Prakash RN 04/22/24 15:24:
Jaquelin NAIK fax [phone].
Original Note:
Sleepy but awakes when spoken to her. Irwin present they live in 2 story home with 2 steps to enter and stair glide to bed bathroom. They have walkers Wheelchair, stair glide, commode Shower chair walk in shower. Reviewed PT Ot with pt and
.Both agree she wants to be dc today to home with Jaquelin NAIK today. Referral for Jaquelin NAIK in care port Pt is assisted with meds and meals prep. Independent with shower. Irwin said he will drive her home. IMM reviewed signed on chart.
Hx of [facility] VN: Hx of [facility].
Pharmacy [facility]
PCP Dr Yana Proctor
PLAN Home with Jaquelin NAIK
[2024-04-23 03:11] LABS: Lamotrigine (Lamictal) 11.3 ug/mL (3.0-15.0)
== END 2024-04-22 17:31 | disposition home health service (06) | DRG 64 ==
LOC: 4 EAST ACU 21:47
PROVIDERS: Clinical Nurse Specialist Family Health; ADMITTING PHYSICIAN Internal Medicine; ATTENDING PHYSICIAN Hospitalist; CONSULT PHYSICIAN Psychiatry & Neurology Neurology; CONSULT PHYSICIAN Psychiatry & Neurology Psychiatry; EMERGENCY PHYSICIAN Emergency Medicine; FAMILY PHYSICIAN Family Medicine
DX: I63.89 Other cerebral infarction (principal); G92.9 Unspecified toxic encephalopathy; F10.139 Alcohol abuse with withdrawal, unspecified; M47.12 Other spondylosis with myelopathy, cervical region; N18.9 Chronic kidney disease, unspecified; I12.9 Hypertensive chronic kidney disease with stage 1 through stage 4 chronic kidney disease, or unspecified chronic kidney disease; G43.909 Migraine, unspecified, not intractable, without status migrainosus; E03.9 Hypothyroidism, unspecified; E78.00 Pure hypercholesterolemia, unspecified; F10.129 Alcohol abuse with intoxication, unspecified; Y90.6 Blood alcohol level of 120-199 mg/100 ml; L29.9 Pruritus, unspecified; M79.10 Myalgia, unspecified site; G89.29 Other chronic pain; R47.01 Aphasia; F32.A Depression, unspecified; I65.21 Occlusion and stenosis of right carotid artery; G26 Extrapyramidal and movement disorders in diseases classified elsewhere; M48.02 Spinal stenosis, cervical region; R74.01 Elevation of levels of liver transaminase levels; F44.5 Conversion disorder with seizures or convulsions; I73.9 Peripheral vascular disease, unspecified; E66.811 Obesity, class 1; Z79.82 Long term (current) use of aspirin; Z79.890 Hormone replacement therapy; Z79.899 Other long term (current) drug therapy; Z86.79 Personal history of other diseases of the circulatory system; Z86.73 Personal history of transient ischemic attack (TIA), and cerebral infarction without residual deficits; Z96.652 Presence of left artificial knee joint; Z96.641 Presence of right artificial hip joint; Z92.21 Personal history of antineoplastic chemotherapy; Z87.891 Personal history of nicotine dependence; Z68.31 Body mass index [BMI] 31.0-31.9, adult; Z85.3 Personal history of malignant neoplasm of breast
CPT/HCPCS: 70450; 70496; 70498; 70551; 80053; 80061; 80143; 80175; 80179; 80306; 80307; 81003; 82010; 82077; 82140; 82306; 82607; 82746; 82962; 82977; 83735; 84100; 84443; 85025; 85610; 85730; 93005; 97163; 97167; 97530; 99285; Q9967

== ENCOUNTER → 2024-05-15 18:29 | Outpatient (REF) | payer BC, MEDICARE, SELFPAY | LOC: MRI 18:29 | PROVIDERS: ATTENDING PHYSICIAN Neurological Surgery; FAMILY PHYSICIAN Family Medicine | DX: R53.1 Weakness (principal); R27.8 Other lack of coordination; R26.81 Unsteadiness on feet; Z99.3 Dependence on wheelchair | CPT/HCPCS: 72156; 72157; A9575 ==

== ENCOUNTER 2024-05-16 08:48 | Inpatient (IN) | payer BC, MEDICARE, SELFPAY ==
[2024-05-12 09:20] VITALS: BMI 29.4
[2024-05-12 09:49] LABS: % Basophils 0.9 % (0-2); % Eosinophils 3.7 % (0-6); % Immature Granulocytes 0.5 % (0-0.5); % Neutrophils 70.9 % (42.2-75.2); Absolute Basophils 0.1 10^3/uL (0-0.2); Absolute Eosinophils 0.4 10^3/uL (0-0.7); Absolute Immature Granulocytes 0.1 10^3/uL (0-0.05); Absolute Lymphocytes 1.7 10^3/uL (1.2-3.4); Absolute Monocytes 0.8 10^3/uL (0.1-0.6); Absolute Neutrophils 7.3 10^3/uL (1.4-6.5); Hematocrit 38.7 % (37.0-47.0); Hemoglobin 12.3 g/dL (12.0-16.0); Mean Corp Hgb Conc. 31.8 g/dL (33.0-37.0); Mean Corpuscular Hgb 32.6 pg (27.0-31.0); Mean Corpuscular Volume 102.7 fL (81.0-99.0); Mean Platelet Volume 9.7 fL (7.4-10.4); Nucleated Red Blood Cells % 0 %; Platelet Count 294 10^3/uL (130-400); Red Blood Cell Count 3.77 10^6/uL (4.20-5.40); White Blood Cell Count 10.3 10^3/uL (4.8-10.8)
[2024-05-12 09:58] LABS: APTT 26.8 Sec (23.4-35.0); PT 12.5 Sec (11.4-14.6)
[2024-05-12 10:52] LABS: Blood Urea Nitrogen 15 mg/dl (7-17); Calcium 9.6 mg/dl (8.4-10.2); Carbon Dioxide 26 mmol/L (22-30); Chloride 105 mmol/L (98-107); Estimated Creatinine Clearance 50 ml/min; Glucose 118 mg/dl (70-99); Sodium 143 mmol/L (135-145); eGFR > 60.00
[2024-05-16] VITALS (31 sets, daily range): BP systolic 108–186; BP diastolic 50–118; BMI 29.4
[2024-05-16] MEDS: PERIDEX 0.12% ORAL RINSE 15 ML PO (10:05)
[2024-05-16] MEDS: BACTROBAN NASAL 1 GRAM NASAL (10:05)
[2024-05-16] MEDS: VANCOCIN 200 IV (10:06)
--- NOTE | 2024-05-16 10:44 | W.SUR.PREOP ---
Pre-Operative Surgical Note
-
I have examined this patient prior to the performance of the scheduled procedure.
The patient's condition is unchanged from the time of the current History and
Physical and the patient is able to undergo the scheduled procedure.
[2024-05-16 12:33] LABS: ACT-LR - POC 256 Seconds (116-155)
[2024-05-16 13:33] LABS: ACT-LR - POC 245 Seconds (116-155)
--- NOTE | 2024-05-16 14:05 | W.IMMPOSTOP ---
Surgical Immed Post Op Note
-
Primary Surgeon: Carolin
Assisting Surgeon: Adrianne
Pre-op Diagnosis: R carotid stenosis
Post-op Diagnosis: R carotid stenosis
Procedure Performed: R CEA
Anesthesia Type: General
Specimen / Cultures: None
Estimated Blood Loss: 50 cc
Complications: None
Operative Findings: R CEA
--- NOTE | 2024-05-16 14:33 | OR.RPT ---
Operative Report
Operative Report
Date of Operation: 05/16/2024
Pre Op Diagnosis: Symptomatic right carotid artery stenosis
Post Op Diagnosis: Symptomatic right carotid artery stenosis
Procedure: RIGHT carotid endarterectomy with patch angioplasty using bovine pericardium
Surgeon: Patrick Coe III, MD
Content Manager: Reed Silver MD PGY1
Anesthesia: General
Complications: None
History and Indications for Procedure: 68-year-old female with symptomatic right carotid artery stenosis.
Procedure in Detail: Mi Porras was correctly identified and placed supine on the operating table. After adequate induction of anesthesia the right neck was positioned, prepped and draped in the usual sterile fashion. Preoperative antibiotics
were administered. A timeout procedure was performed with the nursing and anesthesia staff confirming the patients identity as well as the nature and laterality of the procedure.
The carotid bifurcation was marked with ultrasound at the beginning of the case. The incision was planned accordingly. An incision was made along the anterior border of the right sternocleidomastoid muscle. Electrocautery was used to divide the
subcutaneous tissue and platysma. The carotid sheath was entered with sharp dissection. The internal jugular vein was retracted laterally. The vagus nerve was identified and protected throughout the case. The common carotid artery was identified at
the base of this incision and carefully encircled with a vessel loop. The patient was systemically heparinized. The dissection was continued distally towards the carotid bifurcation. The facial vein was skeletonized, ligated and divided between ties
and clips. The proximal external carotid artery was encircled with a vessel loop. The distal internal carotid artery was encircled with a vessel loop at a soft spot on the artery beyond the plaque. There was also an atypical occipital branch (also
seen on preoperative CT angiogram) arising from the proximal internal carotid artery that was separately controlled with a vessel loop. The hypoglossal nerve was clearly identified and protected.
The internal vessel loop was secured followed by the common and then the external along with the occiptal. An arteriotomy was made on the distal common carotid artery with an 11-blade. This was extended proximally and distally with [place] scissors.
The arteriotomy was extended distally through the plaque to an area of normal appearing internal carotid artery. The distal vessel loop was replaced with a short tip hockey-stick type vascular clamp. An endarterectomy was performed with a [place]
elevator in the standard fashion. The proximal extent of the plaque was transected with scissors. The distal end of the plaque in the internal carotid artery feathered nicely. No distal intimal flap was identified. The plaque extending into the
external carotid artery as well as the occipital branch was everted. Once the plaque was fully removed the endarterectomy plane was irrigated with heparinized saline and any loose fronds of tissue were removed. A pre-cut piece of bovine pericardium
was sewn in place using a running 6-0 Prolene suture. Prior to the completion of the patch the common carotid was allowed to forward bleed and the external was allowed to back bleed. The area under the patch was irrigated with heparinized saline to
remove any potential thrombus or debris. The anastomosis was completed.
The external and vessel loop was released first, followed by the common and then the internal and occipital branch. There was an excellent pulse in the distal internal carotid artery. An excellent quality Doppler signal in the distal internal
carotid artery was also confirmed. The patch suture line was closely inspected for hemostasis and was achieved. Protamine was administered. Hemostasis was achieved in the wound bed. The wound was irrigated with saline solution.
The wound was then closed in layers. Sterile skin glue was applied. The patient awoke from anesthesia with no immediate neuro deficits and was taken to the PACU in stable condition.
Attestation: I was present and responsible for the entire procedure
Signed:
Patrick Coe III, MD
[facility]
[phone] (wtgf)
[2024-05-16] MEDS: DILAUDID 0.25 MG IV (14:51)
[2024-05-16 14:52] LABS: Hematocrit 33.3 % (37.0-47.0); Hemoglobin 10.8 g/dL (12.0-16.0); Mean Corp Hgb Conc. 32.4 g/dL (33.0-37.0); Mean Corpuscular Hgb 33.2 pg (27.0-31.0); Mean Corpuscular Volume 102.5 fL (81.0-99.0); Platelet Count 253 10^3/uL (130-400); Red Blood Cell Count 3.25 10^6/uL (4.20-5.40); Red Cell Dist. Width 12.9 % (11.5-14.5); White Blood Cell Count 13.5 10^3/uL (4.8-10.8)
[2024-05-16] MEDS: DILAUDID 0.5 MG IV ×2 (15:07→21:23)
[2024-05-16 15:12] LABS: Blood Urea Nitrogen 15 mg/dl (7-17); Calcium 8.5 mg/dl (8.4-10.2); Carbon Dioxide 19 mmol/L (22-30); Chloride 108 mmol/L (98-107); Estimated Creatinine Clearance 63 ml/min; Glucose 161 mg/dl (70-99); Potassium 3.2 mmol/L (3.5-5.1); Sodium 138 mmol/L (135-145); eGFR > 60.00
[2024-05-16] MEDS: NSS 1000 IV (15:34)
[2024-05-16 15:49] LABS: Magnesium 2.1 mg/dl (1.6-2.3); Phosphorus 3.4 mg/dl (2.5-4.5)
--- NOTE | 2024-05-16 16:07 | CON.INTV ---
Consultation
Consultation Request
Date/Time Consultation Requested: 05/16/2024-4:15 PM
Date/Time Consultation Performed: 05/16/2024-4:30 PM
Requesting Provider: Dr. Coe
Performing Provider: Dr. Jensen
Reason for Consultation: Postoperative critical care management
Medical History
-
Chief Complaint: Carotid stenosis
History of Present Illness:
68-year-old obese former smoking female with a history of hypertension, hyperlipidemia, cluster migraines, cerebral aneurysm status post clipping as well as seizure disorder found to have significant right internal carotid artery stenosis and
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
Patient is seen postoperatively and denies any shortness of breath, chest pain, chest congestion or productive cough, abdominal pain, nausea, weakness, dysarthria or dysphagia.
Past Medical History
Past Medical History: None (Hypertension. Hyperlipidemia. Breast cancer/lumpectomy/chemo/XRT. Cerebral aneurysm/clipping. Seizure-psychogenic or epileptic. Colon polyps. Depression. Anxiety. Chronic kidney disease stage III. Ventilator
dependence February 2019. Cluster migraines.)
Past Surgical History: None (Cerebral aneurysm clipping. Right hip replacement 2006. Bladder repair 1977. Cholecystectomy 1999. Hysterectomy 1976. Lumpectomy 1990. . Colonic polypectomy. Trigger release 2022. Left TKR 04/2023.)
Social History
Tobacco: Former Smoker (Smoked from 40 years old to 59 years old)
Alcohol: Chronic Alcoholic (Stopped 4 weeks ago)
Drug: None
Living: With Family
Occupational Exposures: No known tuberculosis exposure
Environmental Exposures: No known asbestos exposure
Family History
Family History: Other (Father-alcoholism. Mother-breast cancer and hypertension. Sister with breast cancer.)
Allergies / Home Medications
Allergies
Allergy/AdvReac Type Severity Reaction Status Date / Time
Cephalosporins Allergy Rash Verified 05/10/24 10:21
codeine [Codeine] Allergy 'constricts Verified 05/10/24 10:21
breathing'
escitalopram Allergy Rash Verified 05/10/24 10:21
escitalopram oxalate Allergy Potassium Verified 05/10/24 10:21
[From Lexapro] & sodium
drops
hydrochlorothiazide Allergy fingers Verified 05/10/24 10:21
swelled
morphine Allergy 'jump out Verified 05/10/24 10:21
of my
skin'
feeling
Penicillins Allergy rash & Verified 05/10/24 10:21
constricts
breathing
varenicline tartrate Allergy nausea;bad Verified 05/10/24 10:21
[From Chantix] dreams
venom-honey bee Allergy BEE Verified 05/10/24 10:21
STINGS-BREATHING
PROBLEMS
Home Medications
�Medication �Instructions �Recorded �Confirmed �Last Taken �Type
multivitamin with folic acid 400 1 tab PO DAILY 10/05/17 05/10/24 04/20/24 09:00 History
mcg tablet (Tab-A-Sanchez)
levothyroxine 25 mcg tablet 75 mcg PO Q OTHER DAY 03/23/23 05/16/24 05/16/24 08:00 History
potassium 95 mg tablet 95 mg PO DAILY ##0 03/23/23 05/16/24 05/15/24 09:00 History
candesartan 16 mg tablet 16 mg PO DAILY #0 tabs 04/16/23 05/16/24 05/15/24 09:00 Rx
aspirin 81 mg tablet,delayed 81 mg PO DAILY 07/17/23 05/16/24 05/15/24 09:00 History
release
simvastatin 40 mg tablet 40 mg PO HS 04/20/24 05/16/24 05/15/24 21:00 History
topiramate 50 mg tablet (Topamax) 50 mg PO DAILY 04/20/24 05/16/24 05/15/24 09:00 History
cholecalciferol (vitamin D3) 50 50 mcg PO DAILY 04/21/24 05/16/24 05/15/24 09:00 History
mcg (2,000 unit) tablet (Vitamin
D3)
clonidine HCl 0.1 mg tablet 0.1 mg PO DAILY 04/21/24 05/16/24 05/16/24 08:00 History
clonidine HCl 0.1 mg tablet 0.2 mg PO HS 04/21/24 05/16/24 05/15/24 21:00 History
lamotrigine 100 mg tablet,extended 400 mg PO HS 04/21/24 05/16/24 05/15/24 21:00 History
release 24 hr (Lamictal XR)
magnesium oxide 400 mg PO HS 04/21/24 05/16/24 05/15/24 21:00 History
oxycodone-acetaminophen 5 mg-325 0.5 tab PO BIDPRN PRN severe pain 04/21/24 05/16/24 05/13/24 History
mg tablet
clopidogrel 75 mg tablet 75 mg PO DAILY 19 days #19 tabs 04/22/24 05/16/24 05/15/24 09:00 Rx
duloxetine 30 mg capsule,delayed 90 mg (3 x 30 mg) PO DAILY 30 days 04/22/24 05/16/24 05/15/24 09:00 Rx
release #90 caps
propranolol 60 mg capsule,24 60 mg PO DAILY 30 days #30 caps 04/22/24 05/16/24 05/15/24 09:00 Rx
hr,extended release
levothyroxine 75 mcg tablet 150 mcg PO PRINGLE 05/10/24 05/16/24 05/14/24 History
Review of Systems
-
Unable to Obtain full review of systems at this time due to: Other (Per HPI)
Vitals / Labs / Diagnostic Testing
Vital Signs
Temp Pulse Resp BP Pulse Ox
97.6 F 65 13 120/67 99
05/16/24 14:28 05/16/24 15:46 05/16/24 15:46 05/16/24 15:46 05/16/24 15:46
Lab Data
02/11/25 14:36
Diagnostic Testing:
Physical Exam
-
Exam:
Well-nourished and well-developed in no apparent distress
HEENT-atraumatic, normocephalic
Neck-supple, no JVD, no bruit
Heart-regular rate and rhythm-no murmurs, rubs or gallops
Chest-clear to auscultation, no wheezes, crackles
Back-no tenderness
Abdomen-soft, nontender, nondistended, no hepatosplenomegaly
Extremities-no cyanosis, clubbing, edema and good peripheral pulses
Integument-intact, no rashes, lesions or ecchymosis
Neurology-alert and oriented, nonfocal motor and sensory exam
Assessment
-
68-year-old obese former smoking female with a history of hypertension, hyperlipidemia, cluster migraines, cerebral aneurysm status post clipping as well as seizure disorder found to have significant right internal carotid artery stenosis and
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
Right internal carotid stenosis
Status post right CEA-Dr. Coe 05/16/2024
Mild leukocytosis
Mild macrocytic anemia-hemoglobin 10.8
Hypokalemia
Hyperglycemia
Obesity-BMI 30
History of alcohol use
Conditions present prior to admission:
Hypertension.
Hyperlipidemia.
Breast cancer/lumpectomy/chemo/XRT.
Cerebral aneurysm/clipping.
Seizure-psychogenic or epileptic.
Colon polyps.
Depression.
Anxiety.
History of alcohol abuse
PAD
History of CVA
Chronic kidney disease stage III.
Ventilator dependence February 2019.
Cluster migraines.
Cerebral aneurysm clipping. Right hip replacement 2006. Bladder repair 1977. Cholecystectomy 1999. Hysterectomy 1976. Lumpectomy 1990. . Colonic polypectomy. Trigger release 2022. Left TKR 04/2023.
Plan
Patient will monitor closely in surgical intensive care unit
Supplemental oxygen will be provided as needed
Incentive spirometry
Vascular surgery following closely
Vascular and neuro checks per protocol
Monitor blood pressure closely
Maintain adequate cerebral perfusion pressures
Pressors or antihypertensives will be initiated as needed
Monitor hemoglobin
Follow MSAS-reportedly stopped drinking 4 weeks ago
Monitor for alcohol withdrawal
Alcohol withdrawal treatment protocol if needed
Aspiration precautions
Early nutrition
Early mobilization
DVT prophylaxis
Consider outpatient sleep apnea workup
Critical care statement: A total of 55 minutes of critical care time was provided for this patient today. This includes management of unstable vital signs, evaluation of the patient at bedside, reviewing the patient's pertinent medical records
including radiographs, microbiology, laboratory evaluations, and discussion with primary team and critical care nursing.
Diagnostic data:
Chest x-ray 09/20/2020-NAD
Chest x-ray 05/16/2024-mild pulmonary vascular congestion, moderate hiatal hernia
MRI brain 08/03/23-no acute intracranial abnormalities, scattered small foci of chronic microhemorrhage may be on the basis of cerebral amyloid angiopathy or hypertensive angiopathy
MRI brain 04/21/2024-small 4.3 mm acute ischemic infarct in the superior right parietal lobe, small chronic ischemic white matter infarcts, severe white matter leukoaraiosis, hypertensive microangiopathy, previous bifrontal craniotomy with mild
encephalomalacia
Echocardiogram 10/31/2010-EF 55%, mitral regurgitation
Data Reviewed
-
EKG: Report reviewed by me
Radiology: Image personally visualized and interpreted and Report reviewed by me
CT Scan: Report reviewed by me
Ultrasound: Report reviewed by me
Medical Tests (Nuc Med, Echo etc): Report reviewed by me
Labs: Labs reviewed by me
Old Records: Reviewed
Critical Care Time (in minutes): 55
[2024-05-16] MEDS: NSS 500 IV (16:59)
[2024-05-16] MEDS: KCL 160 MEQ IV (16:59)
[2024-05-16] MEDS: TYLENOL 650 MG PO ×2 (17:00→23:57)
--- NOTE | 2024-05-16 18:11 | PTCARENOTE ---
Received pt from PACU around 1730 on 5mg/hr of Cardene that was quickly weaned by half and is currently off. Pt c/o 6/10 neck pain, given Tylenol and ice pack and pt fell asleep. Neuro intact. Pt weaned to room air with sats 89-94%, no acute
distress. Occasional snoring noted. Admission completed. Otherwise please refer to worklist.
[2024-05-16] MEDS: LAMICTAL 200 MG PO (20:04)
[2024-05-16] MEDS: HEPARIN 5000 UNITS SC (20:04)
[2024-05-16] MEDS: THIAMINE INJECTION 200 MG IV (20:05)
[2024-05-16] MEDS: LIPITOR 20 MG PO (20:59)
[2024-05-16] MEDS: TOPAMAX 50 MG PO (21:00)
[2024-05-16] MEDS: CATAPRES 0.2 MG PO (21:00)
[2024-05-16] MEDS: MAG-TAB SR 84 MG PO (21:00)
--- NOTE | 2024-05-16 21:26 | PTCARENOTE ---
Received pt from previous RN. Pt is AAOx3, MSAS per protocol (see worklist), anxious, garbled speech, left sided weakness. NSR on the monitor, Cardene gtt on @ 2.5 mg (see worklist). On RA O2 sat 93%, lungs diminished, shallow/tachypneic. Pt
requesting pw, pw in place, education provided. Right neck incision c/d/i, top mild swelling, soft to touch, tender. Pt c/o 11/12 right neck pain, PRN Dilaudid given (see MAR). NS infusing @ 80 ml/hr. CHG bath provided. Pt laying in bed with call
donato in reach. Safe environment maintained.
[2024-05-16 21:28] LABS: Potassium 3.9 mmol/L (3.5-5.1)
--- NOTE | 2024-05-16 21:30 | PTCARENOTE ---
Received pt from previous RN. Pt is AAOx3, MSAS per protocol (see worklist), anxious, garbled speech, left sided weakness. NSR on the monitor, Cardene gtt on @ 2.5 mg (see worklist). On RA O2 sat 93%, lungs diminished, shallow/tachypneic. Pt
requesting pw, pw in place, education provided. Change of shift assessment with previous RN right neck incision c/d/i, top mild swelling, soft to touch, tender, local erythema and ecchymotic. Pt c/o 8/10 right neck pain, PRN Dilaudid given (see
MAR). NS infusing @ 80 ml/hr. CHG bath provided. Pt laying in bed with call donato in reach. Safe environment maintained.
--- NOTE | 2024-05-16 23:45 | PTCARENOTE ---
Systems reviewed, no new changes in assessment. Vascular protection officer notified about pt right neck c/o 8/10 pain, soft to touch, mild swelling and ecchymotic, same as change of shift assessment. Will continue to monitor.
[2024-05-17] VITALS (14 sets, daily range): BP systolic 131–161; BP diastolic 63–98; PULSE 69; BMI 29.4
[2024-05-17] MEDS: DILAUDID 0.5 MG IV ×2 (01:23→05:44)
[2024-05-17] MEDS: NSS 1000 IV (03:00)
--- NOTE | 2024-05-17 03:19 | PTCARENOTE ---
Addendum entered by Sinai Pantoja RN 05/17/24 03:45:
Valium x1 given (see MAR). Pt c/o pain in her right neck. O2 sat dropped to 83%, pt placed on 2L NC O2 sat 97%.
Original Note:
Systems reviewed. Went in to check pt right neck incision, little hematoma/collection. ICU RECORDS MANAGEMENT ASSOCIATE Manasa in to see the pt. Vascular admissions assistant Laurie notified by TT.
[2024-05-17 03:28] LABS: Hematocrit 29.3 % (37.0-47.0); Hemoglobin 9.7 g/dL (12.0-16.0); Mean Corp Hgb Conc. 33.1 g/dL (33.0-37.0); Mean Corpuscular Hgb 33.2 pg (27.0-31.0); Mean Corpuscular Volume 100.3 fL (81.0-99.0); Mean Platelet Volume 10.2 fL (7.4-10.4); Platelet Count 236 10^3/uL (130-400); Red Blood Cell Count 2.92 10^6/uL (4.20-5.40); Red Cell Dist. Width 12.9 % (11.5-14.5); White Blood Cell Count 13.7 10^3/uL (4.8-10.8)
[2024-05-17] MEDS: VALIUM INJECTION 5 MG IV (03:37)
[2024-05-17 03:38] LABS: INR 1.04; PT 13.9 Sec (11.4-14.6)
[2024-05-17 03:39] LABS: APTT 31.9 Sec (23.4-35.0)
[2024-05-17 03:53] LABS: Blood Urea Nitrogen 20 mg/dl (7-17); Calcium 8.4 mg/dl (8.4-10.2); Carbon Dioxide 16 mmol/L (22-30); Chloride 111 mmol/L (98-107); Estimated Creatinine Clearance 50 ml/min; Glucose 144 mg/dl (70-99); Sodium 139 mmol/L (135-145); eGFR > 60.00
--- NOTE | 2024-05-17 05:28 | W.PN.UPDATE ---
Addendum entered and electronically signed by MAXX Jin 05/17/24 06:25:
0600- Updated Dr. Sullivan, vascular surgeon, hematoma becoming harder and expanding above the incision of R CEA. Will make patient NPO.
Original Note:
Update Note
Progress Note Update
0300- Patient having some continued tenderness around right CEA incision site. Small hematoma and bruising noted top of the incision more proximal to the patient with increased bruising, area soft no hardness. Dr. Sullivan, vascular surgeon updated.
Encouraged patient to apply ice off/on. PRN Dilaudid and 1x valium 5mg IV for muscle spasms and anxiety.
[2024-05-17] MEDS: SYNTHROID 75 MCG PO (05:37)
--- NOTE | 2024-05-17 05:45 | PTCARENOTE ---
ICU TELEGRAPH SERVICE CLERK Manasa notified, she notified vascular. Pt right neck expanding above the incision, more swollen, harder and ecchymotic. Pt w/ 11/12 pain, PRN Dilaudid given (see MAR). Ice provided.
--- NOTE | 2024-05-17 07:43 | W.PN.INTV ---
Today's Communication / Plan
Recommendations
deline
Wean oxygen
Increase activity
Transfer out of ICU-call pulmonary if respiratory issues arise
Assessment
-
68-year-old obese former smoking female with a history of hypertension, hyperlipidemia, cluster migraines, cerebral aneurysm status post clipping as well as seizure disorder found to have significant right internal carotid artery stenosis and
underwent right CEA-photoengraving retoucher consulted for postoperative critical care management 05/16/2024.
Right internal carotid stenosis
Status post right CEA-Dr. Coe 05/16/2024
Mild leukocytosis
Mild macrocytic anemia-hemoglobin 10.8
Hypokalemia
Hyperglycemia
Obesity-BMI 30
History of alcohol use
Conditions present prior to admission:
Hypertension.
Hyperlipidemia.
Breast cancer/lumpectomy/chemo/XRT.
Cerebral aneurysm/clipping.
Seizure-psychogenic or epileptic.
Colon polyps.
Depression.
Anxiety.
History of alcohol abuse
PAD
History of CVA
Chronic kidney disease stage III.
Ventilator dependence February 2019.
Cluster migraines.
Cerebral aneurysm clipping. Right hip replacement 2006. Bladder repair 1977. Cholecystectomy 1999. Hysterectomy 1976. Lumpectomy 1990. . Colonic polypectomy. Trigger release 2022. Left TKR 04/2023.
Plan
Hemodynamically and neurovascularly intact
Wean supplemental oxygen
Incentive spirometry encourage
Aspiration precautions
Monitor hemoglobin
Transfuse if needed
Monitor blood sugars
Insulin supplementation if needed
Neuro and vascular checks per protocol also continue
Vascular surgery following closely-correspondence reviewed
Patient reportedly stopped drinking alcohol 4 weeks ago-monitor for withdrawal just in case
DVT prophylaxis recommended
Nutrition
Increase activity/physical therapy
Consider outpatient sleep apnea workup
Patient can be transferred out of ICU-call pulmonary if respiratory issues arise
Reviewed the patient's pertinent medical records including radiographs, microbiology, laboratory evaluations, and discussion with primary team, consultants, pharmacy, nutrition, physical therapy, case management, charge nurse, critical care
nursing, and respiratory therapy.
Diagnostic data:
Chest x-ray 09/20/2020-NAD
Chest x-ray 05/16/2024-mild pulmonary vascular congestion, moderate hiatal hernia
MRI brain 08/03/23-no acute intracranial abnormalities, scattered small foci of chronic microhemorrhage may be on the basis of cerebral amyloid angiopathy or hypertensive angiopathy
MRI brain 04/21/2024-small 4.3 mm acute ischemic infarct in the superior right parietal lobe, small chronic ischemic white matter infarcts, severe white matter leukoaraiosis, hypertensive microangiopathy, previous bifrontal craniotomy with mild
encephalomalacia
Echocardiogram 10/31/2010-EF 55%, mitral regurgitation
Subjective Dataa
Subjective Data
Date of Service:
Date of Service: May 17, 2024
Chief Complaint: Hand Coremaker Follow Up and Pulmonary Follow Up
Subjective:
Out of bed, feels well, no complaints of shortness of breath, productive cough, chest pain or abdominal pain
Review of Systems
General: Other (Per HPI)
Objective Data
Data Reviewed
Vital Signs / I&O / Oxygen:
Vital Signs
Temp Pulse Resp BP Pulse Ox
97.9 F 68 15 133/98 97
05/17/24 03:40 05/17/24 06:45 05/17/24 06:45 05/17/24 06:00 05/17/24 06:45
Intake and Output
05/16/24 05/17/24 05/18/24
06:59 06:59 06:59
Intake Total 2410.0 / 2410.0
Output Total 150 / 150
Balance 2260.0 / 2260.0
SaO2 97
Nasal Cannula flow liters per 2
minute
Physical Exam
General: Respiratory Distress (n) and Comfortable
HEENT: Normocephalic, Anicteric and Moist Mucous Membranes
Cardiovascular: Regular Rhythm
Respiratory: Wheeze (n), Crackles (n), Rhonchi (n), Non-Labored Respirations and Accessory Resp Muscle Use (n)
GI: Soft, Non Distended and Non Tender
Neurology: Awake, Alert and No Motor Deficits
Skin: Warm, Good Color, Cyanosis (n) and Jaundice (n)
Labs/Micro/Reports
Lab Data
05/17/24 03:07
05/17/24 03:07
Laboratory Results
05/17/24
03:07
PT 13.9
INR 1.04
APTT 31.9
[2024-05-17] MEDS: CATAPRES 0.1 MG PO (07:58)
[2024-05-17] MEDS: ASPIR LOW (ENTERIC COATED) 81 MG PO (07:58)
[2024-05-17] MEDS: ATACAND 16 MG PO (07:58)
[2024-05-17] MEDS: FOLVITE 1 MG PO (07:59)
[2024-05-17] MEDS: HEPARIN 5000 UNITS SC (07:59)
[2024-05-17] MEDS: INDERAL LA 60 MG PO (07:59)
[2024-05-17] MEDS: CYMBALTA DELAYED RELEASE 90 MG PO (07:59)
[2024-05-17] MEDS: LAMICTAL 200 MG PO (07:59)
[2024-05-17] MEDS: PLAVIX 75 MG PO (08:00)
[2024-05-17] MEDS: THIAMINE INJECTION 200 MG IV (08:00)
[2024-05-17] MEDS: THERAGRAN 1 TABLET PO (08:00)
[2024-05-17] MEDS: VITAMIN D3 (cholecalciferol) 50 MCG PO (08:00)
[2024-05-17] MEDS: TYLENOL 650 MG PO (08:00)
--- NOTE | 2024-05-17 08:13 | W.PN.VS ---
Addendum entered and electronically signed by Newton Zaragoza MD 05/17/24 10:29:
Seen and examined with FLIGHT TEST SUPERVISOR. Agree with findings as noted below. Right neck incision is clean dry and intact. There is a mild/small hematoma deep to the incision, but it soft. No significant firmness or compression effect. Neurologically no focal
deficits. Moves all extremities well. Tongue midline.
Original Note:
Today's Communication / Plan
-
Patient seen and examined at bedside with Dr. Newton Zaragoza, below plan reviewed with attending.
Assessment/Plan
-
Assessment: 68-year-old female POD #1 right carotid endarterectomy
Plan:
Discontinue arterial line
Discontinue IV fluids
OOB to chair with progression to ambulation as tolerated
Continue p.o. diet
Patient with history of alcohol abuse we will continue with withdrawal protocol
Possible discharge later this afternoon
Subjective Data
-
Date of Service: May 17, 2024
Patient seen and examined at bedside, does report left-sided neck pain currently managed well with prescribed pain medication regimen. Tolerating p.o. diet. Denies headache, nausea, vomiting, fever, chills.
Objective Data
-
Vital Signs
Temp Pulse Resp BP Pulse Ox
97.5 F 68 15 139/89 97
05/17/24 07:44 05/17/24 06:45 05/17/24 06:45 05/17/24 07:58 05/17/24 06:45
Intake and Output
05/16/24 05/17/24 05/18/24
06:59 06:59 06:59
Intake Total 2410.0 / 2410.0
Output Total 150 / 150
Balance 2260.0 / 2260.0
Intake:
Oral fluids 830 / 830
IV fluids (Total) 1420.0 / 1420.0
NSS 250 / 250
Nss 1,000 ml @ 80 mls/hr IV . 1120 / 1120
[id number] [id number] Rx#:[id number]
cardene 50.0 / 50.0
IV piggybacks 160 / 160
Output:
Urine, Voided 150 / 150
Other:
Number of approximated MODERATE 1
amounts of urine
Number of approximated LARGE 1
amounts of urine
Lab Results
05/17/24 03:07
05/17/24 03:07
Calcium 8.4 mg/dl (8.4-10.2) 05/17/24 03:07
Phosphorus 3.4 mg/dl (2.5-4.5) 05/16/24 14:36
Magnesium 2.1 mg/dl (1.6-2.3) 05/16/24 14:36
Physical Exam
-
No apparent distress, resting in bed comfortably
Right neck surgical incision with scant edema and small stable nonpulsatile hematoma at upper pole of incision, all surrounding areas soft, Exofin glue intact, suture line well approximated, face symmetrical, tongue midline
No tachycardia
No dyspnea
ABD rotund, nondistended
Bilateral upper extremities and lower extremities with equal strength
--- NOTE | 2024-05-17 10:12 | PTCARENOTE ---
Pt seen this am by vascular team, slight hematoma noted at upper pole of R neck incision, surrounding tissue soft. this has improved with ice pack this morning. Neuro intact, tongue midline. Speech garbled at times, but pt talks fast and this
improves when asked to slow down. Gait unsteady when walking, improved with use of walker. Consult for pt/ot obtained. Pt assisted to bathroom to void, followed by hand washing and brushed her teeth. Pt then set up in chair at bedside.
Otherwise please see flowsheet.
--- NOTE | 2024-05-17 11:32 | CM ---
Addendum entered by Louann Manuel 05/17/24 12:45:
Plan: Discharge to home; will resume outpatient PT
Original Note:
Met with patient and her at bedside; initial assessment completed
Pharmacy verified: [facility] @ [address] [place] [address]
Patient and spouse live in a multilevel single home; 2 steps to enter; powder room 1st floor; utilizes Chair Lift to 2nd Floor bed/bath; bathroom has walk-in shower with grab bar and seat
PLOF: independent with personal care; reported he is present when she is bathing; manages head teller; and her medication administration; patient ambulates with Rollator or cane; does not drive
No recent history or SNF or home health utilization
will transport home
Explained that PT recommended home health when stable for discharge; patient prefers to go to outpatient therapy
Plan: Discharge to home; pland to resume outpatient PT
--- NOTE | 2024-05-17 11:59 | W.DS.TRANS ---
DC Summary - Multimedia Engineer
-
Discharge Instructions:
Discharge Diagnosis/Procedures Right carotid endarterectomy
Diet As tolerated
Activity No strenuous activity
Driving Restrictions Not until seen by your Dr
Bathing Restrictions OK to Shower
Instructions:
Stand-Alone Forms:
Changes to Home Medications: No
Discharge Medications:
DC Medications w/original date entered in [employer]
multivitamin with folic acid 400 mcg tablet (Tab-A-Sanchez) 1 tab PO DAILY 10/05/17
levothyroxine 25 mcg tablet 75 mcg PO MOTUWETHFRSA 03/23/23
potassium 95 mg tablet 95 mg PO DAILY ##0 03/23/23
candesartan 16 mg tablet 16 mg PO DAILY #0 tabs 04/16/23
aspirin 81 mg tablet,delayed release 81 mg PO DAILY 07/17/23
simvastatin 40 mg tablet 40 mg PO HS 04/20/24
topiramate 50 mg tablet (Topamax) 50 mg PO HS 04/20/24
cholecalciferol (vitamin D3) 50 mcg (2,000 unit) tablet (Vitamin D3) 50 mcg PO DAILY 04/21/24
clonidine HCl 0.1 mg tablet 0.1 mg PO DAILY 04/21/24
clonidine HCl 0.1 mg tablet 0.2 mg PO HS 04/21/24
lamotrigine 100 mg tablet,extended release 24 hr (Lamictal XR) 400 mg PO HS 04/21/24
magnesium oxide 400 mg PO HS 04/21/24
oxycodone-acetaminophen 5 mg-325 mg tablet 0.5 tab PO BIDPRN PRN severe pain 04/21/24
clopidogrel 75 mg tablet 75 mg PO DAILY 19 days #19 tabs 04/22/24
duloxetine 30 mg capsule,delayed release 90 mg (3 x 30 mg) PO DAILY 30 days #90 caps 04/22/24
propranolol 60 mg capsule,24 hr,extended release 60 mg PO DAILY 30 days #30 caps 04/22/24
levothyroxine 75 mcg tablet 150 mcg PO PRINGLE 05/10/24
Home Medication Changes
Pending Results: No
--- NOTE | 2024-05-17 11:59 | W.DCSUMMARY ---
Discharge Summary
Discharge Data
Date of Admission: 05/16/24
Date of Discharge: 05/17/24
-
Pending Results: No
Hospital Course
Attending: Carolin
Consultants: Pulmonary medicine
Allergies: Cephalosporins, codeine, escitalopram, hydrochlorothiazide, morphine, penicillin, Chantix, bees
Procedure with date: 05/16/2024: Right carotid endarterectomy with bovine pericardial patch angioplasty
History of present illness: The patient is an 68-year-old female with multiple medical conditions including: carotid stenosis, seizures, hypertension, brain aneurysm with clipping, right breast cancer, chemo and radiation, stroke, former smoker,
anxiety/depression, CKD stage III, hypercholesterolemia, iron deficiency, migraines. Patient presented on 05/12/2024 for scheduled procedure with Dr. Coe. Patient presented at baseline health with no reports of recent illness or trauma.
Hospital Course: Briefly, the patient underwent scheduled CEA without complications, and recovered in PACU. Following recovery phase one and two patient was transferred to intensive care unit per protocol for continued hemodynamic monitoring.
Insulation Engineman consulted to aid in medical management from a critical care perspective. POD #1 (05/17/2024) Patient neurologically intact, face symmetrical, and tolerating PO diet. Surgical neck site clean, dry, and intact with suture line well
approximated and soft. Scant edema to site glue intact. Arterial line and IV fluids discontinued. Patient able to ambulate without difficulty or incident. Patient stable for discharge to home.
Prescriptions and follow up appointment are included in the DC summary head doffer note. All instructions were given to the patient in both written and verbal form and the patient expressed understanding.
Discharge Plan
-
Patient Disposition: Home (Routine Discharge)
Discharge Diagnosis/Procedures: Right carotid endarterectomy
Condition: Good
Diet: As tolerated
Activity: No strenuous activity
Driving Restrictions: Not until seen by your Dr
Bathing Restrictions: OK to Shower
Activity Restrictions/Additional Instructions:
If you experience severe constant headache, weakness to an arm or leg, change in vision, trouble speaking or any stroke-like symptom, call 911 immediately
If you experience swelling, increased bruising, drainage from neck site, or fever, please call the office
Referrals:
Joselin Proctor, [Primary Care Provider] -
Kami Barajas CRNP [Specified Professional Personl] - 06/01/24 11:15 am
Prescriptions:
Continued
multivitamin with folic acid [Tab-A-Sanchez] 1 TABLET tablet
1 tab PO DAILY
levothyroxine 25 MCG tablet
75 mcg PO MOTUWETHFRSA
Patient Comments:
wednesday thru wednesday
potassium 95 mg Tablet
95 mg PO DAILY Qty: 0
candesartan 16 MG tablet
16 mg PO DAILY Qty: 0 0RF
Rx Instructions:
HOLD IF systolic blood pressure <130 while on Oxycodone.
aspirin 81 mg Tablet,Delayed Release (Dr/Ec)
81 mg PO DAILY
simvastatin 40 mg Tablet
40 mg PO HS
topiramate [Topamax] 50 mg Tablet
50 mg PO HS
oxycodone-acetaminophen 5-325 mg Tablet
0.5 tab PO BIDPRN PRN (Reason: severe pain)
clonidine HCl 0.1 mg Tablet
0.1 mg PO DAILY
clonidine HCl 0.1 mg Tablet
0.2 mg PO HS
cholecalciferol (vitamin D3) [Vitamin D3] 50 mcg (2,000 unit) Tablet
50 mcg PO DAILY
lamotrigine [Lamictal XR] 100 mg Tablet Extended Release 24hr
400 mg PO HS
magnesium oxide 400 mg magnesium Capsule
400 mg PO HS
propranolol 60 mg Capsule,Extended Release 24 Hr
60 mg PO DAILY 30 Days Qty: 30 0RF
clopidogrel 75 mg Tablet
75 mg PO DAILY 19 Days Qty: 19 0RF
duloxetine 30 mg Capsule,Delayed Release(Dr/Ec)
90 mg PO DAILY 30 Days Qty: 90 0RF
levothyroxine 75 mcg tablet
150 mcg PO PRINGLE
Discharge Orders:
Discharge Patient (As Directed); Ordered 05/17/24
Ordered By: Cecy Kathleen
Discharge Date and Time
Print Language: CITIZ[place]
== END 2024-05-17 12:44 | disposition home or self-care (01) | DRG 39 ==
LOC: ICU 08:48
PROVIDERS: Nurse Practitioner; ADMITTING PHYSICIAN Surgery Vascular Surgery; CONSULT PHYSICIAN Internal Medicine Critical Care Medicine; PRIMARYCARE PHYSICIAN Family Medicine
PROC: 03UK0KZ Supplement Right Internal Carotid Artery with Nonautologous Tissue Substitute, Open Approach (ICD-10-PCS; 2024-05-16)
PROC: 03CK0ZZ Extirpation of Matter from Right Internal Carotid Artery, Open Approach (ICD-10-PCS; 2024-05-16)
DX: I65.21 Occlusion and stenosis of right carotid artery (principal); I12.9 Hypertensive chronic kidney disease with stage 1 through stage 4 chronic kidney disease, or unspecified chronic kidney disease; N18.30 Chronic kidney disease, stage 3 unspecified; G43.909 Migraine, unspecified, not intractable, without status migrainosus; D53.9 Nutritional anemia, unspecified; F32.A Depression, unspecified; F41.9 Anxiety disorder, unspecified; E78.00 Pure hypercholesterolemia, unspecified; G40.909 Epilepsy, unspecified, not intractable, without status epilepticus; E66.9 Obesity, unspecified; Z88.0 Allergy status to penicillin; Z88.5 Allergy status to narcotic agent; Z68.30 Body mass index [BMI] 30.0-30.9, adult; Z96.641 Presence of right artificial hip joint; Z82.49 Family history of ischemic heart disease and other diseases of the circulatory system; Z87.891 Personal history of nicotine dependence; Z86.73 Personal history of transient ischemic attack (TIA), and cerebral infarction without residual deficits; Z79.899 Other long term (current) drug therapy; Z79.02 Long term (current) use of antithrombotics/antiplatelets; Z79.890 Hormone replacement therapy; Z79.82 Long term (current) use of aspirin; Z85.3 Personal history of malignant neoplasm of breast
CPT/HCPCS: 88304; 88311; 35301; 36415; 71045; 71046; 80048; 83735; 84100; 84132; 85025; 85027; 85610; 85730; 95938; 95941; 95955; 97163; 97167

== ENCOUNTER → 2024-06-08 08:44 | Outpatient (REF) | payer BC, SELFPAY | LOC: DHVS 08:44 | PROVIDERS: ATTENDING PHYSICIAN Registered Nurse; FAMILY PHYSICIAN Family Medicine | DX: I65.21 Occlusion and stenosis of right carotid artery (principal) | CPT/HCPCS: 93880 ==

== ENCOUNTER → 2024-12-08 11:02 | Outpatient (REF) | payer BC, SELFPAY | LOC: HWRAD 11:02 | PROVIDERS: ATTENDING PHYSICIAN Family Medicine | DX: R10.2 Pelvic and perineal pain (principal) | CPT/HCPCS: 73523 ==

== ENCOUNTER → 2024-12-19 16:15 | Outpatient (REF) | payer BC, MEDICARE, SELFPAY | LOC: RAD 16:15 | PROVIDERS: ATTENDING PHYSICIAN Family Medicine | DX: N83.201 Unspecified ovarian cyst, right side (principal); M25.551 Pain in right hip; M25.552 Pain in left hip | CPT/HCPCS: 72194; Q9967 ==

== ENCOUNTER → 2024-12-20 14:13 | Outpatient (REF) | payer BC, MEDICARE, SELFPAY | LOC: RAD 14:13 | PROVIDERS: ATTENDING PHYSICIAN Physician Assistant; FAMILY PHYSICIAN Family Medicine | DX: I65.21 Occlusion and stenosis of right carotid artery (principal) | CPT/HCPCS: 93880 ==

== ENCOUNTER 2025-01-11 16:15 | Inpatient (IN) | payer MEDICARE, OTHER, SELFPAY ==
[2025-01-11] VITALS (25 sets, daily range): BP systolic 120–205; BP diastolic 51–106
[2025-01-11 14:45] LABS: Glucose - Point of Care 216 mg/dl (70-99)
[2025-01-11 14:51] LABS: Hematocrit 34.7 % (37.0-47.0); Hemoglobin 11.2 g/dL (12.0-16.0); Mean Corp Hgb Conc. 32.3 g/dL (33.0-37.0); Mean Corpuscular Volume 100.0 fL (81.0-99.0); Nucleated Red Blood Cells % 0.7 %; Platelet Count 617 10^3/uL (130-400); Red Cell Dist. Width 14.6 % (11.5-14.5)
--- NOTE | 2025-01-11 14:51 | CON.NEURO4 ---
Addendum entered and electronically signed by Mika Griffin MD 01/11/25 16:21:
Studies reviewed.
I have personally examined the patient. I reviewed and agree with the WAVE SOLDERING MACHINE OPERATOR's Note.
My addenda:
Unresponsive. Intubated. No acute distress.
Speech: Mute.
Follows no requests. No tremor.
Face appears symmetric. Hearing: Unable to assess.
Neck: full ROM.
Chest: no dyspnea
Heart: no JVD
Ext: (-) Clubbing, (-) Cyanosis, (-) Edema
IMPRESSIONS/RECOMMENDATIONS:
Abrupt onset of change in mental status with CT of head suggesting profound intraventricular hemorrhage with significant midline shift
Agree with consideration for hospice/comfort care
Can attempt to reduce the patient's blood pressure by means of labetalol and nicardipine
D/W family / nursing
All questions answered.
Will continue to follow as needed.
Original Note:
Documented by User: Keturah Trinidad NP 01/11/25 15:46
Consultation - Neurology 4
-
CONSULTING PHYSICIAN: Mika Griffin MD
REFERRING PHYSICIAN: ER/Dr. Escudero
DICTATED BY: MAXX Aquino
DATE/TIME OF REQUEST: 01/11/25
DATE/TIME OF CONSULTATION: 01/11/25
Reason for Consultation: Stroke Alert
History of Present Illness:
This is a 69-year-old female who has presented to the hospital with report of unresponsiveness. Patient has been previously evaluated by our inpatient neurology service several times since 2010 for seizure-like events and change in mental status.
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 She was most recently here in April 2024 with headache and agitation. MRI brain demonstrated a right parietal ischemic stroke. Carotid imaging was supportive of R ICA
moderate-severe stenosis and she underwent R CEA in 05/2024.
This afternoon around 1315 patient was on the toilet attempting to have a bowel movement when her caregiver reports that she suddenly slumped to her left side and became unresponsive. EMS were called and noted she was posturing, intubated on the
scene. A stroke alert was activated. Blood pressure is 205/99. CT head was obtained on arrival and demonstrates a large IPH with midline shift and early herniation.
Past Medical History: Right parietal ischemic stroke 04/2024, R ICA stenosis s/p R CEA 05/2024, seizures, PNES, R ACOM aneurysm s/p clipping [facility] 2005, headaches, tremor, hallucinations, alcohol abuse, HTN, HLD, hepatitis A, PVD, depression, breast
cancer s/p lumpectomy/chemo/radiation, obesity
Surgical History: R frontal craniotomy for R ACOM aneurysm clipping, R CEA 05/2024, R lumpectomy, cholecystectomy, L TKR, R THR, , hysterectomy, bladder repair, femur repair
Family History: Reviewed and noncontributory.
Social History: Alcohol abuse. Former tobacco. No illicit drug use.
Allergies: See below.
Home Medications: See below.
Review of Symptoms:
Per the HPI. I am unable to obtain a complete review of systems�because of patient's inability to provide history.
Physical Exam:
The patient is afebrile, abdomen is nondistended, breathing is unlabored on mechanical ventilation, skin is warm and dry, no edema.
NIH Stroke Scale:
I performed the NIH stroke scale on the patient on 01/11/25 at 1450. The patient scored 12 points on the NIH stroke scale assessment, which were assigned as follows: See below, low NIHSS due to being unresponsive.
Neurologic Examination:
The patient is unresponsive to painful stimulation.
Lab Results: See below.
Neuro Imaging:
1. CT Head 01/11/25: Large parenchymal hematoma centered within the right parietal, frontal, and temporal lobes, measuring approximately 6.3 x 5.7 x 5.3 cm, with intraventricular extension. Approximately 1.8 cm right to left midline shift, and
diffuse sulcal effacement on the right side. Mild mass effect on the basal cisterns, suggestive of early transtentorial herniation.
Differentials for the patient's presentation include:
1. Large intraparenchymal hemorrhage with midline shift and early herniation. Very poor prognosis.
2. Hypertensive emergency.
Patient has the following risk factors for their symptoms: HTN
IV Tenecteplase/IAT candidacy: Not a candidate due to large IPH.
Recommendations:
-Recommend urgent consultation with [facility] neurosurgery and goals of care conversation
-Cardene drip, SBP goal <140.
Discussed patient care with: Dr. Griffin, Dr. Escudero, patient's spouse
Vital Signs and Labs
-
Vital Signs and Labs:
Vital Signs
Pulse Resp BP Pulse Ox
79 24 188/106 100
01/11/25 14:43 01/11/25 14:43 01/11/25 14:43 01/11/25 14:43
Lab Results
01/11/25 14:42
Medications
-
Active Medications
Generic Name Dose Route Start Last Admin
Trade Name Freq PRN Reason Stop Dose Admin
Nicardipine/Sodium Chloride 40 mg in 200 mls @ 0 mls/hr 01/11/25 15:00 01/11/25 14:56
Cardene IV 200 mls
PER PROTOCOL JES Administration
Protocol
Per Protocol
Labetalol HCl 10 mg 01/11/25 14:53
Labetalol Hcl 5 Mg/1 Ml (20 Mg/4 Ml) Injection IV 01/11/25 14:54
NOW STA
Home Medications
�Medication �Instructions �Recorded
multivitamin with folic acid 400 1 tab PO DAILY Supplement 10/05/17
mcg tablet (Tab-A-Sanchez)
levothyroxine 25 mcg tablet 75 mcg PO MOTUWETHFRSA Thyroid 03/23/23
potassium 95 mg tablet 95 mg PO DAILY ##0 03/23/23
candesartan 16 mg tablet 16 mg PO DAILY #0 tabs 04/16/23
aspirin 81 mg tablet,delayed 81 mg PO DAILY Blood Clot 07/17/23
release Prevention/Tx
simvastatin 40 mg tablet 40 mg PO HS High Cholesterol 04/20/24
topiramate 50 mg tablet (Topamax) 50 mg PO HS 04/20/24
cholecalciferol (vitamin D3) 50 50 mcg PO DAILY Supplement 04/21/24
mcg (2,000 unit) tablet (Vitamin
D3)
clonidine HCl 0.1 mg tablet 0.1 mg PO DAILY Blood Pressure 04/21/24
clonidine HCl 0.1 mg tablet 0.2 mg PO HS Blood Pressure 04/21/24
lamotrigine 100 mg tablet,extended 400 mg PO HS 04/21/24
release 24 hr (Lamictal XR)
magnesium oxide 400 mg PO HS Supplement 04/21/24
oxycodone-acetaminophen 5 mg-325 0.5 tab PO BIDPRN PRN severe pain 04/21/24
mg tablet
clopidogrel 75 mg tablet 75 mg PO DAILY 19 days #19 tabs 04/22/24
duloxetine 30 mg capsule,delayed 90 mg (3 x 30 mg) PO DAILY 30 days 04/22/24
release #90 caps
propranolol 60 mg capsule,24 60 mg PO DAILY 30 days #30 caps 04/22/24
hr,extended release
levothyroxine 75 mcg tablet 150 mcg PO PRINGLE Thyroid 05/10/24
Allergies
-
Allergies
Allergy/AdvReac Type Severity Reaction Status Date / Time
Cephalosporins Allergy Rash Verified 01/11/25 14:49
codeine (Codeine) Allergy 'constricts Verified 01/11/25 14:49
breathing'
escitalopram Allergy Rash Verified 01/11/25 14:49
escitalopram oxalate (From Allergy Potassium Verified 01/11/25 14:49
Lexapro) & sodium
drops
hydrochlorothiazide Allergy fingers Verified 01/11/25 14:49
swelled
morphine Allergy 'jump out Verified 01/11/25 14:49
of my
skin'
feeling
Penicillins Allergy rash & Verified 01/11/25 14:49
constricts
breathing
varenicline tartrate (From Allergy nausea;bad Verified 01/11/25 14:49
Chantix) dreams
venom-honey bee Allergy BEE Verified 01/11/25 14:49
STINGS-BREATHING
PROBLEMS
NIH Stroke Score
Subsequent NIH Scale
Date of Subsequent NIH Scale: 01/11/25
Time of Subsequent NIH Scale: 14:50
NIH Stroke Score
Level of Consciousness: 3 - Totally unresponsive
LOC Questions: 2-Neither correct
LOC Commands: 2-Performs neither correctly
Best Horizontal Gaze: 0-Normal
Visual Koehler: 0=Normal, no visual loss
Facial Palsy: 0=Normal, symmetrical
Motor - Right Arm: UN=Amputation/jointfusion
Motor - Left Arm: UN=Amputation/jointfusion
Motor - Right Leg: UN-Amputation/jointfusion
Motor - Left Leg: UN-Amputation/jointfusion
Limb Ataxia: UN-Amputation/jointfusion
Sensation: 0-Normal
Best Language: 3-Mute/global aphasia
Dysarthria: UN-Intubated, other
Extinction and Inattention: 2-Total bolivar inattention
NIH Total Score:: 12
Modified Dimitris (mRS) Score
Modified Castell Scale (mRS): Severe disability. Requires constant nursing care.
Score: 5
Alteplase Contraindication
Inclusion and Exclusion criteria reviewed: Yes
Reasons for NON-Tx with Thrombolytics ABSOLUTE Exclusions: Evidence of intracranial hemorrhage on pre-treatment CT head

Documented by User: Mika Griffin MD 01/11/25 16:16
NIH Stroke Score
NIH Stroke Score
NIH Total Score:: 12
Modified Dimitris (mRS) Score
Score: 5
[2025-01-11] MEDS: CARDENE 200 IV (14:56)
[2025-01-11] MEDS: DIPRIVAN 100 IV (14:57)
[2025-01-11 15:01] LABS: INR 0.98; PT 13.5 Sec (11.4-14.6)
--- NOTE | 2025-01-11 15:08 | ED.CVA ---
History of Present Illness
General
Chief Complaint: CVA/TIA Symptoms
Source: patient and ambulance crew
Exam Limitations: altered mental status
Time Seen by Provider: 01/11/25 14:48
Nursing documentation reviewed up to this point in time: agreed with
Onset of Stroke Symptoms
Onset of symptoms known: Yes
Date of onset of symptoms: 01/11/25
Time of onset of symptoms: 13:15
History of Present Illness
History of Present Illness:
Patient with history of brain aneurysm, status post coiling in 2004, currently taking aspirin 81 mg daily, presents to ED secondary to sudden onset of mental status change along with left-sided weakness, noted by family. Per paramedics, when
arrived at scene, patient was unresponsive with profound left-sided weakness, and posturing. With concern for airway compromise, patient was intubated at scene by paramedics, with 7.5 ET tube. Patient given Versed and fentanyl in route to the
hospital for sedation. No further information is available at this time.
Past History
Past History
ED Past Medical History: Cancer (breast treated with lumpectomy, chemotherapy, radiation therapy), HTN, Hypercholesterolemia, Seizures (psychogenic nonepileptic seizures meaning pseudoseizures), Psychiatric (major depression), Other (pneumonia,
hepatitis A), Other (Cerebral aneurysm, peripheral vascular disease) and Other (colonic polyps)
ED Past Surgical History: Cholecystectomy, Gynecological (hysterectomy, section), Orthopedic (legs fracture repairs, right hip replacement 2006, shoulder surgery 1977) and Other (Aneurysm with clips)
Social History
Tobacco: Former smoker
Alcohol: Chronic alcoholic
Drug: None
Personal:
Living: with family
Employment: Employed
Family History
Family History: Hypertension and Other (parent with alcoholism)
Review of Systems
Review of Systems
Allergies reviewed?: Yes
Unable to obtain full review of systems at this time due to: intubated
All Other Systems: Not applicable
Phy Exam
Physical Exam
Physical Exam:
Physical Exam
General: no apparent distress, not acutely ill
Neck: supple. no meningeal signs. normal psoterior pharynx
Heart: s1/s2 regular rate and rhythm, no murmur. equal radial pulses.
Lungs: no acute respiratory distress. clear bilaterally
Abdomen: normal bowel sounds. not tender. no CVAT
Neuro: unresponsive. intubated/sedated
Skin: no rash
Extremities: no edema
Course
Orders/Labs/Results
Orders:
Orders
01/11/25 14:40
Electrocardiogram (*1) Urgent
Reason for Study: Other
Other Reason for Exam: Possible Stroke
CT HEAD STROKE ALERT W/o Cont Urgent
Comment:
Reason For Exam: left sided weakness
Bedside Glucose- Treatment ONCE
Cardiac Monitoring- Treatment ONCE
EKG- Treatment ONCE
IV Insert/Care/Rem.- Treatment PRN
Vital Signs As Directed
Frequency: Other
Weight As Directed
Frequency: Once
Comment: ZERO STRETCHER SCALE FOR ACCURATE WEIGHT
Chest X-ray Portable [CR Chest Portable - 1 View] Urgent
Comment:
Reason For Exam: post intubation
Reason Study Needs to be Portable: Unable to Transport
O2 Therapy [RESP] Urgent
Titrate/Wean O2 to maintain O2 sat greater than (%): 93
Special Instructions: MAINTAIN CONTINUOUS O2 SATS > OR = 93%
01/11/25 14:42
Complete Blood Count/With Diff Urgent
Comprehensive Metabolic Panel Urgent
PTT Urgent
Prothrombin Time Urgent
Troponin I Urgent
Propofol 1,000,000 Mcg/100 ml [Diprivan] 1,000,000 mcg in 100 ml .ROUTE .STK-MED
01/11/25 14:48
Propofol 1,000,000 Mcg/100 ml [Diprivan] 1,000,000 mcg in 100 ml IV NOW
Indication:: Light Sedation
Begin Infusion:: Now
Goal:: RASS 0 to -2
Maximum dose in mcg/kg/min:: 50
Initial dose based on RASS:: Yes
If RASS is:: +1 or pt hemodynamically unstable (SBP < 90mmHg), initiate at 10 mcg/kg/min
If RASS is:: +2, initiate at 20 mcg/kg/min
If RASS is:: greater than or equal to +3, initiate at 30 mcg/kg/min
Titration Instructions:: Titrate by 5-10 mcg/kg/min every 5 minutes until RASS 0 to -2 achieved.
Taper Instructions:: If RASS is at or below goal for 4 consecutive hours decrease infusion by
Taper Instructions:: 5-10 mcg/kg/min every 2 hours to off.
Over-sedation Instructions:: If CPOT 0-2 (at goal) AND RASS -3 to -5 (below goal) decrease sedative by
Over-sedation Instructions:: 50% first. If pain score remains at goal and RASS remains below goal in
Over-sedation Instructions:: 1 hour, decrease opioid infusion by 50%.
Notify provider:: immediately if patient exhibits signs/symptoms of propofol-related
Notify provider:: infusion syndrome.
Additional Instructions:: Patient MUST be mechanically ventilated and MUST receive analgesia.
01/11/25 14:53
Labetalol HCl [Trandate] 10 mg IV NOW STA
01/11/25 14:54
Nicardipine 40 mg/200 ml [Cardene] 40 mg in 200 ml .ROUTE .STK-MED
01/11/25 15:00
Nicardipine 40 mg/200 ml [Cardene] 40 mg in 200 ml IV PER PROTOCOL
Initial dose in mg/hr, then titrate:: 5
Titrate to keep:: SBP 140 - 160 mmHg
Titrate by mg/hr:: 2.5 mg/hr
Frequency of titrations (minutes):: 5-15 minutes
Maximum dose in mg/hr:: 15
Begin to taper infusion when:: Remained at goal for 2hrs
Taper by mg/hr:: 2.5 mg/hr
Frequency of taper (minutes) if patient maintains goal:: every 15-30 minutes
Taper to off?: Yes
If infusion off & no longer maintaining goal:: Contact Provider
01/11/25 15:21
Triglycerides Routine
Comment: baseline levels with propofol infusion
01/11/25 15:55
Morphine Sulfate See Protocol IV [id number] PRN
Begin protocol on step:: refer to Morphine infusion order
Notify MD As Directed
Notify physician if: if patient has persistent seizure despite medication
01/11/25 15:56
Admit/Transfer Patient As Directed
Co-Sign Provider:
Level of Care: Inpatient admission
Assign to:: Medical/Surgical
Physician / Group: Chris Stockton
Diagnosis: Large parenchymal hematoma
Reason for Hospitalization: Large parenchymal hematoma
Expected length of stay greater than two midnights?: Yes
ELOS- Estimated Length of Stay in days: 3
I certify the patient meets the requirements for IP care: Yes
PRN Pain Medication Management As Directed
May give lesser potent ordered pain med per pt: Yes
preference::
Protocol:: Medication orders for pain may be administered in a
manner that supports deferring to patient preference
when the pt is:
- Requesting an ordered lesser potent pain medication.
Least to most potent pain medications are defined
as: acetaminophen < NSAID < tramadol < opioids
(morphine, oxycodone, hydromorphone).
- Requesting a lesser dose of the same medication IF
ORDERED.
- Requesting a less intrusive route of administration
if both routes are prescribed by the provider (PO <
IV).
01/11/25 15:57
Code Status As Directed
Resuscitation Status: Do not resuscitate
Reached after discussion with pt or family/Healthcare POA: Yes
Decision communicated with: spouse and son
DNR Bracelet Application ONCE
01/11/25 16:00
Morphine Sulfate 100 mg/100 ml [Morphine] 100 mg in 100 ml IV PER PROTOCOL
Begin protocol on step:: 3
01/11/25 19:01
Acetaminophen [Tylenol/Feverall] 650 mg RECTAL Q4HPRN PRN
Acetaminophen [Tylenol] 650 mg PO Q4HPRN PRN
Bisacodyl [Dulcolax] 10 mg RECTAL DAILYPRN PRN
Glycopyrrolate [Robinul] 0.2 mg IV Q4HPRN PRN
Haloperidol Lactate [Haldol] 2 mg IV Q4HPRN PRN
Ondansetron Injectable [Zofran] 4 mg IV Q6HPRN PRN
01/11/25 19:01
Transfer Patient As Directed
Transfer to: Medical/Surgical
VTE Contraindication Routine
VTE Mechanical Device Contraindication: Comfort Care mgmt
Pharmocologic Contraindication: Comfort Care mgmt
Activity As Directed
Activity Level: As Tolerated
Comfort Measures As Directed
Comment: Pain and Dyspnea assessment every 4 hours
End of Life Symptom Assessment Q4
INT (Intravenous Needle Therapy) As Directed
Vital Signs As Directed
Frequency: Per unit guidelines
01/12/25 Breakfast
NPO
Allow oral meds: No
Allow clear liquids: No
Abnormal Lab Results
01/11/25 01/11/25
14:42 14:43
WBC 21.0 H 10^3/uL
(4.8-10.8)
RBC 3.47 L 10^6/uL
(4.20-5.40)
Hgb 11.2 L g/dL
(12.0-16.0)
Hct 34.7 L %
(37.0-47.0)
MCV 100.0 H fL
(81.0-99.0)
MCH 32.3 H pg
(27.0-31.0)
MCHC 32.3 L g/dL
(33.0-37.0)
RDW 14.6 H %
(11.5-14.5)
Plt Count 617 H 10^3/uL
(130-400)
Abs Immat Gran (auto) 1.5 H 10^3/uL
(0-0.05)
Absolute Neuts (auto) 15.4 H 10^3/uL
(1.4-6.5)
Absolute Monos (auto) 1.4 H 10^3/uL
(0.1-0.6)
Immature Gran % 7.0 H %
(0-0.5)
Lymphocytes % 12.2 L %
(20.5-51.1)
APTT 22.7 L Sec
(23.4-35.0)
Carbon Dioxide 19 L mmol/L
(22-30)
BUN 20 H mg/dl
(7-17)
Glucose 224 H mg/dl
(70-99)
AST 67 H U/L
(14-36)
ALT 111 H U/L
(0-35)
Alkaline Phosphatase 304 H U/L
(38-126)
POC Glucose 216 H mg/dl
(70-99)
01/11/25 14:42
01/11/25 14:42
Vital Signs
Initial and Last Documented VS:
Initial Vital Signs
BP
188/106
01/11/25 14:41
Last Documented Vital Signs
Temp Pulse Resp BP Pulse Ox
101 F H 116 22 182/86 61
01/11/25 21:09 01/11/25 21:45 01/11/25 21:45 01/11/25 16:40 01/11/25 22:41
MDM/Problems Addressed
MDM/Problems Addressed:
Patient evaluated immediately upon arrival, along with Dr. Griffin, neurology.
CT head report reviewed with spouse at bedside. Per spouse, patient has made it clear to him that if her condition were ever to reach a point, where she will not have meaningful life, she will not want any intervention to be performed.
Discussed with neurovascular team at [facility]. In light of patient's minimal neuro exam findings along with CT findings, does not feel that patient will be able to recover significantly, even if emergent craniectomy was
performed.
Discussed with patient's spouse regarding neuro-vascular input. At this time, does not wish to have patient transferred. He understands that patient's condition may not improve, or worsen during hospitalization. This was also discussed with
patient's son at bedside, who also is in agreement.
Critical care statement: A total of 60 minutes of critical care time was provided for this patient. This includes management of unstable vital signs, evaluation of the patient at bedside, reviewing the patient's pertinent medical records, discussion
with consultants, review of old EKGs and review of pertinent medical records. This time with separate from time utilized to perform the aforementioned documented procedures
*Pulse Oximetry
SaO2: 100
Oxygen Mode of Delivery: Room air
Patient hypoxic: no
*EKG
Interpreted by ED Provider?: Yes
EKG Intrepretation Date: 01/11/25
Heart Rate: 79
Rate: normal
Rhythm: sinus
[place]: normal axis
*Critical Care Note
Total Time (30-74mins, 75-104mins- exclusive of procedures): 60 min
ED Attending Note
-
Portions of this chart may have been created with voice recognition software.� Occasional wrong word or��sound alike� substitutions may have occurred due to the inherent limitations of voice recognition software.
Discharge Plan
Departure
Patient Disposition:
Date of Disposition: 01/11/25
Time of Disposition: 15:46
Admit to: Telemetry
Discharge Problem:
Acute spontaneous intraparenchymal intracranial hemorrhage
Interventions
Interventions:
*Risk Screen - Suicide Last Done: 01/11/25 14:43
*General Assessment Last Done: 01/11/25 14:43
*Neglect/Abuse Screening Last Done: 01/11/25 14:43
*ED- Fall Risk Assessment Last Done: 01/11/25 14:43
*ED Influenza Vaccine History Last Done: 01/11/25 14:43
*Nursing Disposition Last Done: 01/12/25 02:53
ED- Pulmonary Assessment Last Done: 01/11/25 15:23
ED- Neurological Assessment Last Done: 01/11/25 15:23
ED- Cardiac Assessment Last Done: 01/11/25 15:23
ED Swallowing Screen Last Done: 01/11/25 15:28
Discharge Date and Time
Discharge Date/Time: 01/12/25 02:55
--- NOTE | 2025-01-11 15:09 | HPS.HSE ---
Family Physician
-
Family Physician: INTERVIEWE UNKNOWN - PT NOT
Chief Complaint
-
stroke like symptoms
History of Present Illness
Patient is a 69-year-old female with past medical history significant for hypertension, hypercholesterolemia, seizure disorder, chronic kidney disease III, iron deficiency anemia and depression/anxiety who presented to [facility] ED via EMS for evaluation
of stroke like symptoms. In chart review it appears EMS reported to ED that patient was in bathroom with caregiver having a bowel movement with she had acute onset of altered mental status associated with left sided facial droop, left sided weakness
and left gaze. Upon EMS arrival patient was unresponsive and posturing with seizure like tremor, EMS intubated in field.
Medical History
Past Medical History
Past Medical History: Reports Other
Additional Past Medical History:
hypertension
hypercholesterolemia
seizure disorder
chronic kidney disease III
iron deficiency anemia
depression/anxiety
Past Surgical History: Reports Other
Additional Past Surgical History:
Cerebral aneurysm clipping
Right hip replacement 2006
Bladder repair 1977
Laparoscopic cholecystectomy 1999
Hysterectomy 1976
Lumpectomy 1990
Colonic polypectomy
Trigger Release - [facility] 07/2022
Left TKR (DOS 04.15.2023) DB 04/2023
RIGHT carotid endarterectomy with patch angioplasty (Dr. Coe) 05/16/2024
Right CTR 07/14/24 PARAG
Left CTR Middle Trigger 11.24.2024 PARAG
Social History
Tobacco: Former Smoker (former smoker 20 years 1 pack/day quit age 58)
Alcohol: Daily (7.48 ounce 4 bottles daily [place] 13% alcohol)
Drug: None
Personal:
Living: With Family ( [place])
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
Family History
Family History: Not pertinent
Allergies / Home Medications
Allergies reflects when Allergies were last updated in [employer].
Home Medications with original date entered in [employer]
Allergy/Medication List:
Allergies
Allergy/AdvReac Type Severity Reaction Status Date / Time
Cephalosporins Allergy Rash Verified 01/11/25 14:49
codeine (Codeine) Allergy 'constricts Verified 01/11/25 14:49
breathing'
escitalopram Allergy Rash Verified 01/11/25 14:49
escitalopram oxalate (From Allergy Potassium Verified 01/11/25 14:49
Lexapro) & sodium
drops
hydrochlorothiazide Allergy fingers Verified 01/11/25 14:49
swelled
morphine Allergy 'jump out Verified 01/11/25 14:49
of my
skin'
feeling
Penicillins Allergy rash & Verified 01/11/25 14:49
constricts
breathing
varenicline tartrate (From Allergy nausea;bad Verified 01/11/25 14:49
Chantix) dreams
venom-honey bee Allergy BEE Verified 01/11/25 14:49
STINGS-BREATHING
PROBLEMS
Home Medications
multivitamin with folic acid 400 mcg tablet (Tab-A-Sanchez) 1 tab PO DAILY Supplement 10/05/17
levothyroxine 25 mcg tablet 75 mcg PO MOTUWETHFRSA Thyroid 03/23/23
potassium 95 mg tablet 95 mg PO DAILY ##0 03/23/23
candesartan 16 mg tablet 16 mg PO DAILY #0 tabs 04/16/23
aspirin 81 mg tablet,delayed release 81 mg PO DAILY Blood Clot Prevention/Tx 07/17/23
simvastatin 40 mg tablet 40 mg PO HS High Cholesterol 04/20/24
topiramate 50 mg tablet (Topamax) 50 mg PO HS 04/20/24
cholecalciferol (vitamin D3) 50 mcg (2,000 unit) tablet (Vitamin D3) 50 mcg PO DAILY Supplement 04/21/24
clonidine HCl 0.1 mg tablet 0.1 mg PO DAILY Blood Pressure 04/21/24
clonidine HCl 0.1 mg tablet 0.2 mg PO HS Blood Pressure 04/21/24
lamotrigine 100 mg tablet,extended release 24 hr (Lamictal XR) 400 mg PO HS 04/21/24
magnesium oxide 400 mg PO HS Supplement 04/21/24
oxycodone-acetaminophen 5 mg-325 mg tablet 0.5 tab PO BIDPRN PRN severe pain 04/21/24
clopidogrel 75 mg tablet 75 mg PO DAILY 19 days #19 tabs 04/22/24
duloxetine 30 mg capsule,delayed release 90 mg (3 x 30 mg) PO DAILY 30 days #90 caps 04/22/24
propranolol 60 mg capsule,24 hr,extended release 60 mg PO DAILY 30 days #30 caps 04/22/24
levothyroxine 75 mcg tablet 150 mcg PO PRINGLE Thyroid 05/10/24
Review of Systems
-
Unable to obtain full review of systems at this time due to: Patient Intubation
Physical Exam
Vital Signs
Vital Signs
Pulse Resp BP Pulse Ox
79 24 188/106 100
01/11/25 14:43 01/11/25 14:43 01/11/25 14:43 01/11/25 14:43
Physical Exam
General: Well Developed and Well Nourished
HEENT: NormoCephalic, Moist mucous membranes and Other (intubated )
Respiratory: Clear
Cardiac: S1/S2 and Regular Rhythm
GI: Soft, Non Distended and Normal Bowel Sounds
Musculoskeletal: No Clubbing, No Cyanosis and No Edema
Skin: Warm and IV/Catheter Site
Neuro: Sedated
Laboratory Results
-
01/11/25 14:42
Data Reviewed
-
Diagnostic Radiology: Report Reviewed by me (CXR: 1. Endotracheal tube projects over the trachea approximately 3 cm above the devonte. 2. Lungs are clear.)
Lab Data: Labs Reviewed by me (WBC 21.0, hgb 11.2, hct 34.7, )
Impression/Plan
-
IMPRESSION/PLAN:
#CVA symptoms 2/2 Large parenchymal hematoma
Goals of care discussion occurred, family requesting patient stay at [facility] for comfort measures only
CXR: 1. Endotracheal tube projects over the trachea approximately 3 cm above the devonte.
2. Lungs are clear.
Head CT: Large parenchymal hematoma centered within the right parietal, frontal, and temporal lobes, measuring approximately 6.3 x 5.7 x 5.3 cm, with intraventricular extension. Approximately 1.8 cm
right to left midline shift, and diffuse sulcal effacement on the right side. Mild mass effect on the basal cisterns, suggestive of early transtentorial herniation.
- Admit to med/surg
- COMFORT MEASURES ONLY
- extubate following family arrival and patient medicated for comfort
- NPO
- notify fruit peeler services
#hypertension
#hypercholesterolemia
#seizure disorder
#chronic kidney disease III
#iron deficiency anemia
#depression/anxiety
Code status: DNR
DVT prophylaxis: n/a
--- NOTE | 2025-01-11 15:09 | W.PN.UPDATE ---
Update Note
Progress Note Update
I could not get any information from the patient - as patient is unreposnive and intubated
Information gathered by chart review and speaking with the ER staff.
This note serves as an addendum to the H&P by retort pre cooker MIRELLA�
Cassie Hicks
HPI
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
chronic CVA seen at ER:
- while she was having BM , caregiver noted acute AMS
- EMS was called - noted unresponsive + Lt sided facial droop + Lt sided weakness + Lt gaze preference + Sz like tremors
- noted posturing
- EMS intubated at the scene
ER TX:
IV Labetalol 10mg x 1
Nicardipine gtt
Propofol gtt
PHX: see above
Relevant VS
01/11/25
14:43 01/11/25
14:43
Pulse 79
Resp Rate 24
Blood pressure 188/106
SaO2 100
Oxygen Mode of Delivery Room air
Actual Weight 73.8 kg
Labs
05/17/24 01/11/25
03:07 14:42
WBC 21.0 H
Hgb 9.7 L 11.2 L
MCV 100.3 H 100.0 H
Plt Count 236 617 H
Immature Gran % 7.0 H
INR Pending
PE
Gen: intubated and under propofol sedated
Relevant Data
CBC
CMP pending
TPNI pending
TG pending
EKG
CXR
1. Endotracheal tube projects over the trachea approximately 3 cm above the devonte.
2. Lungs are clear.
HCT
- Large parenchymal hematoma centered within the right parietal, frontal, and temporal lobes, measuring approximately 6.3 x 5.7 x 5.3 cm, with intraventricular extension.
- Approximately 1.8 cm right to left midline shift, and diffuse sulcal effacement on the right side. Mild mass effect on the basal cisterns, suggestive of early transtentorial herniation.
- The findings were communicated to Zen Escudero MD of the Emergency Department on 01/11/2025 2:57 PM through [facility].
- Electronically signed by Joselito Francis MD, 01/11/2025 3:03 PM
Last admission to vascular service : Date of Admission: 05/16/24 - Date of Discharge: 05/17/24
Procedure with date: 05/16/2024: Right carotid endarterectomy with bovine pericardial patch angioplasty
Last hospitalist admission: Date of Admission: 04/20/24 - Date of Discharge: 04/22/24
Discharge Diagnosis
Acute ischemic CVA right parietal lobe
Chronic CVA
Severe headache
Severe cervical osteoarthritis
Depression
Carotid stenosis
Alcohol intoxication/withdrawal
Acute transaminitis
Last admission to vascular service : Date of Admission: 05/16/24 - Date of Discharge: 05/17/24
Procedure with date: 05/16/2024: Right carotid endarterectomy with bovine pericardial patch angioplasty
ASSESSMENT & PLAN
Acute large Rt sided parenchymal hematoma wity 1.8 cm right to left midline shift
Associated unresponsive and unable to protect AW
HTN emergency - Suspected associated with clinical signs of elevated ICH but not bradycardic
- For now, acute VDRF with vent support and propofol sedation
- Nicardipine gtt
- Life threatening acute neuro medical emergency
- ER attd discussed with neuro surgeon @ [place].
- Chance of meaningful recovery is low - Spouse would like to have patient stay here for comfort measures.
- Per family - awaiting the 94yrs old mother and family members and primary Wastewater Engineer service , then opted to be extubated and Medications approbate for comfort measures and end of life care
- No further blood work
Known HX
HX acute ischemic infarct @ subcortical white matter and the superior R frontal lobe ( 04/20/24) HX DAPT 21d from 05/16/24 - 05/17/24
HX S/P R carotid endarterectomy with bovine pericardial patch angioplasty on
HX ETOH use daily - former ?
HX Depression
HX Chronic pain/myalgias likely secondary to depression
HX Benign HTN
Psychogenic nonepileptic/pseudoseizures
Cerebral aneurysm with clip repair 2005 [facility]
Class I obesity due to excess calorie consumption/immobility BMI 32
Former smoker 25 years 1 pack/day quit 10 years ago
Suspected essential tremors
DVT Px: endo life care
DNR pending to be extubated
ICU if not yet extubated - if after extubation , [place] floor private room appropriate
[2025-01-11 15:12] LABS: APTT 22.7 Sec (23.4-35.0)
[2025-01-11 15:13] LABS: ALT (SGPT) 111 U/L (0-35); AST (SGOT) 67 U/L (14-36); Alkaline Phosphatase 304 U/L (38-126); Blood Urea Nitrogen 20 mg/dl (7-17); Calcium 10.0 mg/dl (8.4-10.2); Carbon Dioxide 19 mmol/L (22-30); Chloride 107 mmol/L (98-107); Glucose 224 mg/dl (70-99); Potassium 4.4 mmol/L (3.5-5.1); Sodium 142 mmol/L (135-145); Total Protein 7.7 g/dl (6.3-8.2); eGFR > 60.00
[2025-01-11 15:18] LABS: Albumin 4.8 g/dl (3.5-5.0)
[2025-01-11 15:24] LABS: Troponin I < 0.012 ng/ml
[2025-01-11 15:50] LABS: Triglycerides 142 mg/dl (10-149)
[2025-01-11] MEDS: MORPHINE 100 IV (16:42)
[2025-01-11] MEDS: MORPHINE SULFATE 2 MG IV ×6 (17:46→22:38)
[2025-01-11] MEDS: VALIUM INJECTION 10 MG IV (17:47)
[2025-01-11] MEDS: TYLENOL/FEVERALL 650 MG RECTAL (21:09)
[2025-01-11] MEDS: ROBINUL 0.2 MG IV (22:13)
[2025-01-11] MEDS: TRANSDERM-SCOP 1 PATCH TRANSDERM (22:15)
--- NOTE | 2025-01-11 23:18 | EDRN ---
Pt pulseless upon entering room. John texted provider at [id number] to pronounce pt. Family at bedside.
--- NOTE | 2025-01-11 23:39 | W.PN.DEATH ---
Pronouncement of
-
Called to see patient to pronounce.
No spontaneous heart tones or respirations noted.
Patient not responsive to verbal stimuli.
Patient is pronounced .
Time of : 23:07
Date of : 01/11/25
Cause of : Acute intraparnchymal hematoma of brain with transtentorial herniation
Family Notified: Yes (family present and others Coronor called Fadi Phillip released her)
--- NOTE | 2025-01-12 15:06 | W.PN.UPDATE ---
Update Note
Progress Note Update
Dictation completed on 01/1025 [id number]
== END 2025-01-11 23:07 | disposition expired | DRG 64 ==
LOC: ED 16:15
PROVIDERS: ADMITTING PHYSICIAN Internal Medicine; EMERGENCY PHYSICIAN Emergency Medicine
DX: I61.8 Other nontraumatic intracerebral hemorrhage (principal); J96.00 Acute respiratory failure, unspecified whether with hypoxia or hypercapnia; I16.1 Hypertensive emergency; N18.30 Chronic kidney disease, stage 3 unspecified; I12.9 Hypertensive chronic kidney disease with stage 1 through stage 4 chronic kidney disease, or unspecified chronic kidney disease; E78.00 Pure hypercholesterolemia, unspecified; G40.909 Epilepsy, unspecified, not intractable, without status epilepticus; D50.9 Iron deficiency anemia, unspecified; F32.9 Major depressive disorder, single episode, unspecified; F41.9 Anxiety disorder, unspecified; F10.11 Alcohol abuse, in remission; Z86.73 Personal history of transient ischemic attack (TIA), and cerebral infarction without residual deficits; Z96.641 Presence of right artificial hip joint; Z90.49 Acquired absence of other specified parts of digestive tract; Z90.710 Acquired absence of both cervix and uterus; Z87.891 Personal history of nicotine dependence; Z88.1 Allergy status to other antibiotic agents; Z88.5 Allergy status to narcotic agent; Z88.0 Allergy status to penicillin; Z79.82 Long term (current) use of aspirin; Z79.02 Long term (current) use of antithrombotics/antiplatelets; Z66 Do not resuscitate; R29.712 NIHSS score 12; Z85.3 Personal history of malignant neoplasm of breast; Z86.0100 Personal history of colon polyps, unspecified; E66.09 Other obesity due to excess calories; E66.811 Obesity, class 1; Z68.32 Body mass index [BMI] 32.0-32.9, adult; I73.9 Peripheral vascular disease, unspecified; Z92.21 Personal history of antineoplastic chemotherapy
CPT/HCPCS: 70450; 71045; 80053; 82962; 84478; 84484; 85025; 85610; 85730; 93005; 96365; 96367; 96375; 99291